=== PATIENT | male | born 1955 | race African-American/Black ===

== ENCOUNTER 2019-09-09 12:40 | Inpatient (IN) | payer OTHER ==
--- NOTE | 2019-09-09 12:54 | PDOC ---
History of Present Illness - General Chief Complaint: Irregular Heart Beat Stated Complaint: Irregular Heart Beat Time Seen by Provider: 09/09/19 12:53 - History of Present Illness Initial Comments: 09/09/19 13:26 63 y/o M hx of polysubstance abuse, presenting from [facility] with bradycardia. Pt from [facility] for detox for xanax use equally uses cocaine and alcohol Last xanax use was 3 days ago last cocaine use -yesterday alcohol use daily 1.5 pints. no seizures or withdrawals from alcohol use reported He denies any chest pain,lightheadedness, headache, syncope, nausea, vomiting, abdominal pain, fever or chills. Past History - Past Medical History Allergies/Adverse Reactions: Allergies Allergy/AdvReac Type Severity Reaction Status Date / Time Penicillins Allergy Severe Swelling Verified 09/09/19 10:56 Home Medications: Ambulatory Orders NK [No Known Home Medication] 09/09/19 *Physical Exam - Physical Exam 09/09/19 13:30 PE: GENERAL: Awake, alert, and fully oriented, in no acute distress HEAD: No signs of trauma, normocephalic, atraumatic EYES: PERRLA, EOMI, sclera anicteric, conjunctiva clear ENT: Auricles normal inspection, hearing grossly normal, nares patent, oropharynx clear without exudates. Moist mucosa NECK: Normal ROM, supple, no lymphadenopathy, JVD, or masses LUNGS: No distress, speaks full sentences, clear to auscultation bilaterally HEART: Regular rate and rhythm, normal S1 and S2, no murmurs, rubs or gallops, peripheral pulses normal and equal bilaterally. ABDOMEN: Soft, nontender, normoactive bowel sounds. No guarding, no rebound. No masses EXTREMITIES : Normal inspection, Normal range of motion, no edema. No clubbing or cyanosis NEUROLOGICAL: Cranial nerves II through XII grossly intact. Normal speech, normal gait, no focal sensorimotor deficits SKIN: Warm, Dry, normal turgor, no rashes or lesions noted ED Treatment Course - LABORATORY CBC & Chemistry Diagram: 09/13/19 06:55 09/13/19 06:55 Medical Decision Making - Medical Decision Making 09/09/19 13:29 ekg, cbc, cmp, troponin ekg: qt prolongation QT/QTc 678/532 bradycardia 37bpm pt stable, asymptomatic Labs generally unremarkable. Pt asymptomatic (no hypotension, altered mental status) QT prolongation possibly due to methadone use. Pt admitted to hospital for observation and monitoring. 09/09/19 18:57 Discharge - Discharge Information Problems reviewed: Yes Clinical Impression/Diagnosis: Bradycardia, QT prolongation - Follow up/Referral - Patient Discharge Instructions - Post Discharge Activity
[2019-09-09 12:56] VITALS: BMI 35.5
[2019-09-09 13:42] LABS: BASO % 0.7 % (0-2.0); EOS % 1.4 % (0-4.5); HEMATOCRIT 35.5 % (35.4-49); HEMOGLOBIN 11.8 GM/dL (11.7-16.9); LYMPH % 32.8 % (8-40); MCHC 33.3 g/dl (32.0-35.9); MEAN CELL VOLUME 90.2 fl (80-96); MEAN PLT VOLUME 8.7 fl (7.5-11.1); MONO % 5.2 % (3.8-10.2); NEUT % 59.9 % (42.8-82.8); PLATELET COUNT 162 K/MM3 (134-434); RBC 3.94 M/mm3 (4.00-5.60); RDW 14.1 % (11.9-15.9); WHITE BLOOD COUNT 4.7 K/mm3 (4.0-10.0)
[2019-09-09 14:10] LABS: ALBUMIN 3.2 g/dl (3.4-5.0); ALK PHOS 105 U/L (45-117); ANION GAP 2 MMOL/L (8-16); BILIRUBIN,TOTAL 0.5 mg/dL (0.2-1); BLOOD UREA NITROGEN 15.6 mg/dL (7-18); CALCIUM 8.3 mg/dL (8.5-10.1); CHLORIDE 111 mmol/L (98-107); CO2 30 mmol/L (21-32); CREATININE 1.1 mg/dL (0.55-1.3); GLUCOSE,RANDOM 68 mg/dL (74-106); POTASSIUM 4.2 mmol/L (3.5-5.1); SGOT/AST 11 U/L (15-37); SGPT/ALT 12 U/L (13-61); SODIUM 143 mmol/L (136-145); TOT PROT 6.2 g/dl (6.4-8.2)
--- NOTE | 2019-09-09 14:36 | PDOC ---
Documentation entered by James Sanford SCRIBE, acting as scribe for Wilner Crowley MD. Wilner Crowley MD: This documentation has been prepared by the Juvenal javier Nirvannie, SCRIBE, under my direction and personally reviewed by me in its entirety. I confirm that the documentation accurately reflects all work, treatment, procedures, and medical decision making performed by me. Attending Attestation - Resident Resident Name: Yuni Simpson - ED Attending Attestation I have performed the following: I have examined & evaluated the patient, The case was reviewed & discussed with the resident, I agree w/resident's findings & plan, Exceptions are as noted - HPI HPI: 09/09/19 13:25 CC: Bradycardia. HPI: The patient is a 63 year old male, with a significant past medical history of polysubstance abuse (alcohol, crack cocaine, and Xanax), who presents to the emergency department with, bradycardia. As per [facility], patient was at their [facility] at which time he was found to be bradycardic to 49 bpm. Patient notes to be asymptomatic. He denies any recent chest pain or shortness of breath. Allergies: Penicillins. Social History: Alcohol abuse (1.5 pts vodka, 3-4 6pks of beer/day approximately 47 years), Crack cocaine (smoking approximately 20 years, Xanax ( 3-6x week, approximately 4-5 months) - Physicial Exam PE: 09/09/19 14:41 Vitals: Triage Vital signs reviewed General Appearance: No acute distress, well nourished well developed, Head: Atraumatic, Cardiac: Bradycardic Lungs: Clear to auscultation bilateral, good air movement bilaterally, Abdomen: Soft, non distended, large abdomen mild ascites Extremities: Full range of motion to all extremities, no cyanosis, clubbing, or edema Skin: Warm and dry, no rashes or lesions, no rash, no petechiae Psych: Normal mood, normal affect - Medical Decision Making 09/09/19 14:42 EKG performed at 1312 demonstrates marketed sinus bradycardia with very significantly prolonged QT corrected QT 532 Patient is on methadone at [facility] patient will require observation for telemetry monitoring and discussion regarding the continuation of methadone given its effect on QT
--- NOTE | 2019-09-09 16:29 | CON.CARD ---
Consult Consult Specialty:: Cardiology Reason for Consultation:: Bradycardia - History of Present Illness History of Present Illness: The patient is a 63 year old male, with a significant past medical history of polysubstance abuse (alcohol, crack cocaine, and Xanax), who presents to the emergency department with, bradycardia. As per [facility], patient was at their [facility], [place] at which time he was found to be bradycardic to 49 bpm. Patient notes to be asymptomatic. He denies any recent chest pain or shortness of breath. Allergies: Penicillins. Social History: Alcohol abuse (1.5 pts vodka, 3-4 6pks of beer/day approximately 47 years), Crack cocaine (smoking approximately 20 years, Xanax ( 3-6x week, approximately 4-5 months) - Alcohol/Substance Use Hx Alcohol Use: Yes (a lot of vodka) - Smoking History Smoking history: Current every day smoker Home Medications - Allergies Allergies/Adverse Reactions: Allergies Allergy/AdvReac Type Severity Reaction Status Date / Time Penicillins Allergy Severe Swelling Verified 09/09/19 10:56 - Home Medications Home Medications: Ambulatory Orders NK [No Known Home Medication] 09/09/19 Review of Systems - Review of Systems Constitutional: reports: No Symptoms Eyes: reports: No Symptoms HENT: reports: No Symptoms Neck: reports: No Symptoms Cardiovascular: reports: No Symptoms Respiratory: reports: No Symptoms Gastrointestinal: reports: No Symptoms Genitourinary: reports: No Symptoms Breasts: reports: No Symptoms Reported Musculoskeletal: reports: No Symptoms Integumentary: reports: No Symptoms Neurological: reports: No Symptoms Endocrine: reports: No Symptoms Hematology/Lymphatic: reports: No Symptoms Psychiatric: reports: No Symptoms Vital Signs: Vital Signs Temperature 97.8 F 09/09/19 12:49 Pulse Rate 38 L 09/09/19 12:49 Respiratory Rate 16 09/09/19 12:49 Blood Pressure 168/79 09/09/19 12:49 O2 Sat by Pulse Oximetry (%) 94 L 09/09/19 12:49 Constitutional: Yes: Well Nourished, No Distress, Calm Eyes: Yes: WNL, Conjunctiva Clear, EOM Intact HENT: Yes: WNL, Atraumatic, Normocephalic Neck: Yes: WNL, Supple, Trachea Midline Respiratory: Yes: WNL, Regular, CTA Bilaterally Gastrointestinal: Yes: WNL, Normal Bowel Sounds Renal/: Yes: WNL Cardiovascular: Yes: WNL, Regular Rate and Rhythm Heart Sounds: Yes: S1, S2 Musculoskeletal: Yes: WNL Extremities: Yes: WNL Integumentary: Yes: WNL Neurological: Yes: WNL, Alert, Oriented ...Motor Strength: WNL Psychiatric: Yes: WNL, Alert, Oriented - Other Data Labs, Other Data: CBC, BMP 09/09/19 13:15 09/09/19 13:15 Troponin, BNP 09/09/19 13:15 Troponin I < 0.02 Troponin, BNP 09/09/19 13:15 Troponin I < 0.02 Imaging - Results Chest X-ray: Image Reviewed (no i/e) EKG: Image Reviewed (s sharon at 37 prolonged QTC) Assessment/Plan Polysubstance abuse asymptomatic bradycardia prolonged QT interval CE negative Plan serial ekgs to monitor QTC telemetry echo holter detox
--- NOTE | 2019-09-09 16:54 | HP ---
CHIEF COMPLAINT: sent by [facility] for bradycardia PCP: HISTORY OF PRESENT ILLNESS: Patient is a 63 year old male with a significant past medical history of polysubstance abuse, alcohol abuse who presented to [facility] for detox from Xanax use (uses 3 xanax per day x 4-5 months, last used on Sunday), cocaine use (used yesterday-smokes), etoh use (beer 6 packs per day, last used today). He denies any seizures or tremors or any signs/symptoms of withdrawal. Patient has been on methadone 100mg for approximately one month and was on a lower dose of methadone a few months prior. Patient brought in for asymptomatic bradycardia and prolonged QTC of 532 on EKG. In the ED patient is awake alert and denies any dizziness, shortness of breath or any other malaise with ambulation. Denies chest pain. ER course was notable for: (1) ekg marked sinus bradycardia 38, qtc 532 (2) (3) Recent Travel: none recent PAST MEDICAL HISTORY: polysubstance abuse, alcohol abuse PAST SURGICAL HISTORY: Social History: Smoking: smokes cocaine Alcohol: beer, 6 pack per day Drugs: cocaine Allergies Penicillins Allergy (Severe, Verified 09/09/19 10:56) Swelling HOME MEDICATIONS: Home Medications Medication Instructions Recorded NK [No Known Home Medication] 09/09/19 PHYSICAL EXAMINATION Vital Signs - 24 hr 09/09/19 12:49 Temperature 97.8 F Pulse Rate 38 L Respiratory 16 Rate Blood Pressure 168/79 O2 Sat by Pulse 94 L Oximetry (%) GENERAL: Awake, alert, and fully oriented, in no acute distress. HEAD: Normal with no signs of trauma. EYES: Pupils equal, round and reactive to light, extraocular movements intact, sclera anicteric, conjunctiva clear. No lid lag. EARS, NOSE, THROAT: Ears normal, nares patent, oropharynx clear without exudates. Moist mucous membranes. NECK: Normal range of motion, supple without lymphadenopathy, JVD, or masses. LUNGS: Breath sounds equal, clear to auscultation bilaterally. No wheezes, and no crackles. No accessory muscle use. HEART: marked sinus bradycardia 38-41 ABDOMEN: Soft, nontender, not distended, normoactive bowel sounds, no guarding, no rebound, no masses. No hepatomegaly or splenomegaly. MUSCULOSKELETAL: Normal range of motion at all joints. No bony deformities or tenderness. No CVA tenderness. UPPER EXTREMITIES: No peripheral edema. LOWER EXTREMITIES: No peripheral edema. NEUROLOGICAL: Normal speech. Normal gait. PSYCHIATRIC: Cooperative. Good eye contact. Appropriate mood and affect. SKIN: Warm, dry, normal turgor, no rashes or lesions noted, normal capillary refill. Laboratory Results - last 24 hr 09/09/19 09/09/19 13:15 13:15 WBC 4.7 RBC 3.94 L Hgb 11.8 Hct 35.5 MCV 90.2 MCH 30.0 MCHC 33.3 RDW 14.1 Plt Count 162 MPV 8.7 Absolute Neuts (auto) 2.8 Neutrophils % 59.9 Lymphocytes % 32.8 Monocytes % 5.2 Eosinophils % 1.4 Basophils % 0.7 Nucleated RBC % 0 Sodium 143 Potassium 4.2 Chloride 111 H Carbon Dioxide 30 Anion Gap 2 L BUN 15.6 Creatinine 1.1 Est GFR (CKD-EPI)AfAm 83.53 Est GFR (CKD-EPI)NonAf 72.07 Random Glucose 68 L Calcium 8.3 L Total Bilirubin 0.5 AST 11 L ALT 12 L Alkaline Phosphatase 105 Troponin I < 0.02 Total Protein 6.2 L Albumin 3.2 L ASSESSMENT/PLAN: Problem List - Problem (1) Bradycardia Assessment/Plan: presents with marked sinus bradycardia with prolonged qtc monitor on tele no signs of infection or hypothermia pacer pads ordered start IVF hydration monitor on tele and trend troponins will order echo and check tsh Code(s): R00.1 - BRADYCARDIA, UNSPECIFIED (2) ETOH abuse Assessment/Plan: avoid any benzos secondary to marked sinus bradycardia, start banana bag, folate thiamine no acute signs of withdrawal on exam Code(s): F10.10 - ALCOHOL ABUSE, UNCOMPLICATED (3) Drug use Assessment/Plan: hx of xanax abuse, monitor for any seizures hold all benzos secondary to sinus bradycardia hold methadone await addition medicine recommendations Code(s): F19.90 - OTHER PSYCHOACTIVE SUBSTANCE USE, UNSPECIFIED, UNCOMPLICATED Visit type - Emergency Visit Emergency Visit: Yes ED Registration Date: 09/09/19 Care time: The patient presented to the Emergency Department on the above date and was hospitalized for further evaluation of their emergent condition. - New Patient This patient is new to me today: Yes Date on this admission: 09/09/19 - Critical Care Critical Care patient: No
[2019-09-09] MEDS ORDERED: FOLIC ACID INJECTION - 1 MG, THIAMINE HCL 100 MG, MULTIVIT INJECTION ADULT 10 ML in SOD... IVPB ONE (18:52)
[2019-09-09] MEDS ORDERED: ACETAMINOPHEN 325 MG TABLET (FP) PO PRN (18:53)
[2019-09-09] MEDS ORDERED: SODIUM CHLORIDE 1,000 ML IV SCH (19:00)
[2019-09-10] MEDS ORDERED: ACETAMINOPHEN 325 MG TABLET (FP) ONE (02:12)
[2019-09-10 07:22] LABS: BASO % 0.6 % (0-2.0); EOS % 2.1 % (0-4.5); HEMATOCRIT 37.6 % (35.4-49); HEMOGLOBIN 12.6 GM/dL (11.7-16.9); LYMPH % 42.9 % (8-40); MCH 30.3 pg (25.7-33.7); MCHC 33.6 g/dl (32.0-35.9); MEAN CELL VOLUME 90.1 fl (80-96); MEAN PLT VOLUME 9.6 fl (7.5-11.1); MONO % 5.1 % (3.8-10.2); NEUT % 49.3 % (42.8-82.8); PLATELET COUNT 155 K/MM3 (134-434); RBC 4.17 M/mm3 (4.00-5.60); RDW 13.7 % (11.9-15.9); WHITE BLOOD COUNT 4.4 K/mm3 (4.0-10.0)
[2019-09-10 08:03] LABS: BLOOD UREA NITROGEN 14.3 mg/dL (7-18); CALCIUM 8.6 mg/dL (8.5-10.1); CREATININE 0.9 mg/dL (0.55-1.3); MAGNESIUM 2.1 mg/dL (1.8-2.4); POTASSIUM 3.6 mmol/L (3.5-5.1)
--- NOTE | 2019-09-10 10:48 | EKG ---
Test Reason : Blood Pressure : / mmHG Vent. Rate : 037 BPM Atrial Rate : 037 BPM P-R Int : 148 ms QRS Dur : 096 ms QT Int : 678 ms P-R-T Axes : 050 -15 -03 degrees QTc Int : 532 ms MARKED SINUS BRADYCARDIA NONSPECIFIC T WAVE ABNORMALITY PROLONGED QT ABNORMAL ECG NO PREVIOUS ECGS AVAILABLE Confirmed by SARA DUMONT MD ([id number]) on 09/10/2019 10:47:48 AM Referred By: Confirmed By:SARA DUMONT MD
[2019-09-10] MEDS: FOLIC ACID 1 MG TABLET (FP) PO SCH (11:00)
[2019-09-10] MEDS: THIAMINE HCL 100 MG TABLET (FP) PO SCH (11:00)
[2019-09-10] MEDS: PANTOPRAZOLE 40 MG TABLET (FP) PO SCH (11:00)
[2019-09-10] MEDS ORDERED: PANTOPRAZOLE 40 MG TABLET (FP) ONE (11:11)
[2019-09-10] MEDS ORDERED: THIAMINE HCL 100 MG TABLET (FP) ONE (11:11)
[2019-09-10] MEDS ORDERED: FOLIC ACID 1 MG TABLET (FP) ONE (11:12)
--- NOTE | 2019-09-10 12:57 | PN ---
Physical Exam: SUBJECTIVE: Patient seen and examined at the bedside. feels like he is having some withdrawal, having nausea and upper body tremors. see ciwa score. OBJECTIVE: Patient is a 63 year old male with a significant past medical history of polysubstance abuse, alcohol abuse who presented to [facility] for detox from Xanax use (uses 3 xanax per day x 4-5 months, last used on Sunday), cocaine use (used yesterday-smokes), etoh use (beer 6 packs per day, last used today). He denies any seizures or tremors or any signs/symptoms of withdrawal. Patient has been on methadone 100mg for approximately one month and was on a lower dose of methadone a few months prior. Patient brought in for asymptomatic bradycardia and prolonged QTC of 532 on EKG. In the ED patient is awake alert and denies any dizziness, shortness of breath or any other malaise with ambulation. Denies chest pain. On admission his Methadone 100mg was held secondary to marked bradycardia. Patient now with withdrawal symptoms. I spoke to Dr. Aburto who recommended a valium taper for detox of xanax. Further Dr Aburto recommended that I call [facility] methadone clinic and discuss case with physician. Called Dr. Granados at [facility] methadone clinic [phone]. advised that methadone should not be completed discontinued and instead can be reduced, recommended methadone 70mg daily and monitor of qtc. will order daily ekgs. Vital Signs Period Temp Pulse Resp BP Sys/Roberson Pulse Ox Last 24 Hr 98.1 F 37-83 18-18 134-180/70-94 96-100 GENERAL: Awake, alert, and fully oriented, in no acute distress. HEAD: Normal with no signs of trauma. EYES: Pupils equal, round and reactive to light, extraocular movements intact, sclera anicteric, conjunctiva clear. No lid lag. EARS, NOSE, THROAT: Ears normal, nares patent, oropharynx clear without exudates. Moist mucous membranes. NECK: Normal range of motion, supple without lymphadenopathy, JVD, or masses. LUNGS: Breath sounds equal, clear to auscultation bilaterally. No wheezes, and no crackles. No accessory muscle use. HEART: marked sinus bradycardia 38-41 ABDOMEN: Soft, nontender, not distended, normoactive bowel sounds, no guarding, no rebound, no masses. No hepatomegaly or splenomegaly. MUSCULOSKELETAL: Normal range of motion at all joints. No bony deformities or tenderness. No CVA tenderness. UPPER EXTREMITIES: No peripheral edema. LOWER EXTREMITIES: No peripheral edema. NEUROLOGICAL: Normal speech. Normal gait. PSYCHIATRIC: Cooperative. Good eye contact. Appropriate mood and affect. SKIN: Warm, dry, normal turgor, no rashes or lesions noted, normal capillary refill. Laboratory Results - last 24 hr 09/09/19 09/09/19 09/09/19 13:15 13:15 18:30 WBC 4.7 RBC 3.94 L Hgb 11.8 Hct 35.5 MCV 90.2 MCH 30.0 MCHC 33.3 RDW 14.1 Plt Count 162 MPV 8.7 Absolute Neuts (auto) 2.8 Neutrophils % 59.9 Lymphocytes % 32.8 Monocytes % 5.2 Eosinophils % 1.4 Basophils % 0.7 Nucleated RBC % 0 Sodium 143 Potassium 4.2 Chloride 111 H Carbon Dioxide 30 Anion Gap 2 L BUN 15.6 Creatinine 1.1 Est GFR (CKD-EPI)AfAm 83.53 Est GFR (CKD-EPI)NonAf 72.07 Random Glucose 68 L Calcium 8.3 L Magnesium Total Bilirubin 0.5 AST 11 L ALT 12 L Alkaline Phosphatase 105 Troponin I < 0.02 < 0.02 Total Protein 6.2 L Albumin 3.2 L Triglycerides Cholesterol Total LDL Cholesterol HDL Cholesterol TSH Thyroxine (T4) 09/10/19 09/10/19 09/10/19 04:06 06:30 06:30 WBC 4.4 RBC 4.17 Hgb 12.6 Hct 37.6 MCV 90.1 MCH 30.3 MCHC 33.6 RDW 13.7 Plt Count 155 MPV 9.6 D Absolute Neuts (auto) 2.2 Neutrophils % 49.3 Lymphocytes % 42.9 H D Monocytes % 5.1 Eosinophils % 2.1 Basophils % 0.6 Nucleated RBC % 0 Sodium 145 Potassium 3.6 Chloride 114 H Carbon Dioxide 27 Anion Gap 4 L BUN 14.3 Creatinine 0.9 Est GFR (CKD-EPI)AfAm 106.46 Est GFR (CKD-EPI)NonAf 91.86 Random Glucose 64 L Calcium 8.6 Magnesium 2.1 Total Bilirubin AST ALT Alkaline Phosphatase Troponin I < 0.02 Total Protein Albumin Triglycerides 59 Cholesterol 142 Total LDL Cholesterol 75 HDL Cholesterol 59 TSH 1.01 Thyroxine (T4) 9.3 Active Medications Generic Name Dose Route Start Last Admin Trade Name Umer PRN Reason Stop Dose Admin Acetaminophen 650 mg 09/09/19 18:53 09/10/19 02:14 Tylenol - PO 650 mg Q6H PRN Administration PAIN LEVEL 7 - 10 Folic Acid 1 mg 09/10/19 10:00 09/10/19 11:00 Folic Acid - PO 1 mg DAILY GELY Administration Sodium Chloride 1,000 mls @ 125 mls/hr 09/09/19 19:00 09/09/19 23:25 Normal Saline - IV Not Given ASDIR GELY Pantoprazole Sodium 40 mg 09/10/19 10:00 09/10/19 11:00 Protonix - PO 40 mg DAILY GELY Administration Thiamine HCl 100 mg 09/10/19 10:00 09/10/19 11:00 Vitamin B1 - PO 100 mg DAILY GELY Administration ASSESSMENT/PLAN: Problem List - Problems (1) Bradycardia Assessment/Plan: presents with marked sinus bradycardia with prolonged qtc. will order daily ekgs. echo ordered and pending. monitor on tele no signs of infection or hypothermia pacer pads ordered start IVF hydration will order echo and check tsh Code(s): R00.1 - BRADYCARDIA, UNSPECIFIED (2) ETOH abuse Assessment/Plan: patient with xanax abuse, unable to discontinue abruptly and a valium taper recommended by Dr. Aburto. given banana bag, folate thiamine for etoh abuse. mild tremors. monitor low ciwa score Code(s): F10.10 - ALCOHOL ABUSE, UNCOMPLICATED (3) Drug use Assessment/Plan: hx of xanax abuse, monitor for any seizures hold all benzos secondary to sinus bradycardia hold methadone await addition medicine recommendations Code(s): F19.90 - OTHER PSYCHOACTIVE SUBSTANCE USE, UNSPECIFIED, UNCOMPLICATED (4) Prophylactic measure Assessment/Plan: fen tolerating po monitor electrolytes low salt diet full code dc to [facility] once cleared by cardiology Code(s): Z29.9 - ENCOUNTER FOR PROPHYLACTIC MEASURES, UNSPECIFIED Visit type - Emergency Visit Emergency Visit: Yes ED Registration Date: 09/09/19 Care time: The patient presented to the Emergency Department on the above date and was hospitalized for further evaluation of their emergent condition. - New Patient This patient is new to me today: No - Critical Care Critical Care patient: No - Discharge Referral Referred to [facility] No CIWA Score Nausea/Vomitin-No Nausea/No Vomiting Muscle Tremors: 4-Moderate,w/Arms Extend Anxiety: 1-Mildly Anxious Agitation: 0-Normal Activity Paroxysmal Sweats: 1-Minimal Palms Moist Orientation: 1-Uncertain about Date Tacttile Disturbances: 0-None Auditory Disturbances: 0-None Visual Disturbances: 0-None Headache: 0-None Present CIWA-Ar Total Score: 7 - Admission Criteria OASAS Guidelines: Admission for Medically Managed Detox: Requires at least one of the followin. CIWA greater than 12 2. Seizures within the past 24 hours 3. Delirium tremens within the past 24 hours 4. Hallucinations within the past 24 hours 5. Acute intervention needed for co occurring medical disorder 6. Acute intervention needed for co occurring psychiatric disorder 7. Severe withdrawal that cannot be handled at a lower level of care (continued vomiting, continued diarrhea, abnormal vital signs) requiring intravenous medication and/or fluids 8.
[2019-09-10] MEDS ORDERED: METHADONE HCL 10 MG TABLET PO ONE (13:16)
[2019-09-10] MEDS ORDERED: METHADONE 40 MG, METHADONE 30 MG PO ONE (13:30)
[2019-09-10] MEDS ORDERED: diazePAM 2 MG TABLET PO PRN (13:40)
--- NOTE | 2019-09-10 14:45 | PN ---
Progress Note, Physician History of Present Illness: The patient is a 63 year old male, with a significant past medical history of polysubstance abuse (alcohol, crack cocaine, and Xanax), who presents to the emergency department with, bradycardia. As per [facility], patient was at their [facility], [place] at which time he was found to be bradycardic to 49 bpm. Patient notes to be asymptomatic. He denies any recent chest pain or shortness of breath. Allergies: Penicillins. Social History: Alcohol abuse (1.5 pts vodka, 3-4 6pks of beer/day approximately 47 years), Crack cocaine (smoking approximately 20 years, Xanax ( 3-6x week, approximately 4-5 months) - Current Medication List Current Medications: Active Medications Acetaminophen (Tylenol -) 650 mg PO Q6H PRN PRN Reason: PAIN LEVEL 7 - 10 Last Admin: 09/10/19 02:14 Dose: 650 mg Diazepam (Valium -) 2 mg PO Q8H PRN PRN Reason: WITHDRAWAL(CONT SUBST) Folic Acid (Folic Acid -) 1 mg PO DAILY [facility] Last Admin: 09/10/19 11:00 Dose: 1 mg Sodium Chloride (Normal Saline -) 1,000 mls @ 125 mls/hr IV ASDIR [facility] Last Admin: 09/09/19 23:25 Dose: Not Given Pantoprazole Sodium (Protonix -) 40 mg PO DAILY [facility] Last Admin: 09/10/19 11:00 Dose: 40 mg Thiamine HCl (Vitamin B1 -) 100 mg PO DAILY [facility] Last Admin: 09/10/19 11:00 Dose: 100 mg - Objective Vital Signs: Vital Signs Temperature 98.1 F 09/10/19 13:56 Pulse Rate 38 L 09/10/19 13:56 Respiratory Rate 18 09/10/19 13:56 Blood Pressure 115/74 09/10/19 13:56 O2 Sat by Pulse Oximetry (%) 96 09/10/19 09:41 Eyes: Yes: WNL, Conjunctiva Clear, EOM Intact HENT: Yes: WNL, Atraumatic, Normocephalic Neck: Yes: WNL, Supple, Trachea Midline Cardiovascular: Yes: WNL, Regular Rate and Rhythm Respiratory: Yes: WNL, Regular, CTA Bilaterally Gastrointestinal: Yes: WNL, Normal Bowel Sounds Genitourinary: Yes: WNL Musculoskeletal: Yes: WNL Extremities: Yes: WNL Edema: No Integumentary: Yes: WNL Neurological: Yes: WNL, Alert, Oriented ...Motor Strength: WNL Psychiatric: Yes: WNL Labs: CBC, BMP 09/10/19 06:30 09/10/19 06:30 Assessment/Plan Polysubstance abuse asymptomatic bradycardia prolonged QT interval CE negative Plan serial ekgs to monitor QTC telemetry echo holter detox
[2019-09-10] MEDS ORDERED: diazePAM 5 MG TABLET PO PRN (14:46)
--- NOTE | 2019-09-10 14:56 | EKG ---
Test Reason : Blood Pressure : / mmHG Vent. Rate : 037 BPM Atrial Rate : 037 BPM P-R Int : 152 ms QRS Dur : 084 ms QT Int : 586 ms P-R-T Axes : 059 -25 002 degrees QTc Int : 460 ms MARKED SINUS BRADYCARDIA ABNORMAL ECG WHEN COMPARED WITH ECG OF 09-SEP-2019 13:12, QT HAS SHORTENED Confirmed by SARA DUMONT MD ([id number]) on 09/10/2019 2:55:33 PM Referred By: Confirmed By:SARA DUMONT MD
--- NOTE | 2019-09-10 16:44 | ECHO ---
Name: VALERIE CONN Exam:Adult Echocardiogram Study Date: 09/10/2019 03:30 PM Age: 63 yrs Reason For Study: ef Height: 67 in Weight: 220 lb BSA: 2.1 m2 MMode/2D Measurements & Calculations IVSd: 1.2 cm Ao root diam: 3.8 cm LVIDd: 5.5 cm LA dimension: 4.2 cm LVIDs: 2.6 cm LVPWd: 1.1 cm IVSs: 1.4 cm LVPWs: 1.3 cm EDV(Teich): 146.5 ml ESV(Teich): 25.1 ml Doppler Measurements & Calculations MV E max pito: 69.6 cm/sec Ao V2 max: 122.7 cm/sec MV A max pito: 47.4 cm/sec Ao max P.0 mmHg MV E/A: 1.5 Ao V2 mean: 94.5 cm/sec Ao mean P.8 mmHg Ao V2 VTI: 33.6 cm MR max pito: 614.3 cm/sec TR max pito: 283.0 cm/sec MR max P.8 mmHg TR max P.6 mmHg PI end-d pito: 108.6 cm/sec Med Peak E' Pito: 9.4 cm/sec Med E/e': 7.4 Lat Peak E' Pito: 10.1 cm/sec Lat E/e': 6.9 Procedure A two-dimensional transthoracic echocardiogram with color flow and Doppler was performed. Left Ventricle The left ventricular size, thickness and function are normal. The left ventricular ejection fraction is normal. The left ventricular wall motion is normal. Right Ventricle A moderator band is seen in the right ventricle. The right ventricle is mildly dilated. The right debora tricular systolic function is mildly reduced. Atria The left atrium is mildly dilated. The right atrium is mildly dilated. Mitral Valve There is mild mitral valve thickening. There is no mitral valve stenosis. There is mild to moderate m itral regurgitation. Tricuspid Valve There is mild tricuspid valve thickening. There is no tricuspid stenosis. There is moderate tricuspid regurgitation. Right ventricular systolic pressure is elevated at 40-50mmHg. Aortic Valve The aortic valve is normal in structure and function. No hemodynamically significant valvular aortic stenosis. No aortic regurgitation is present. Pulmonic Valve The pulmonic valve is not well visualized. There is no pulmonic valvular stenosis. Mild pulmonic valv ular regurgitation. Great Vessels The aortic root is normal size. Pericardium/Pleura There is no pericardial effusion. Interpretation Summary The left ventricular size, thickness and function are normal The left ventricular ejection fraction is normal. The left ventricular wall motion is normal. The left atrium is mildly dilated. The right atrium is mildly dilated. There is moderate tricuspid regurgitation. Right ventricular systolic pressure is elevated at 40-50mmHg. The right ventricle is mildly dilated. The right ventricular systolic function is mildly reduced. There is mild to moderate mitral regurgitation. MD Wali Hampton 09/10/2019 04:44 PM
[2019-09-10] MEDS: diazePAM 5 MG TABLET PO SCH ×2 (17:04→21:27)
[2019-09-10] MEDS ORDERED: METHADONE HCL 10 MG TABLET ONE (17:30)
[2019-09-10] MEDS ORDERED: METHADONE HCL 40 MG DISPERSABLE TABLET ONE (17:30)
[2019-09-11] MEDS ORDERED: METHADONE HCL 10 MG TABLET ONE (05:37)
[2019-09-11] MEDS ORDERED: METHADONE HCL 40 MG DISPERSABLE TABLET ONE (05:37)
[2019-09-11] MEDS: METHADONE 40 MG, METHADONE 30 MG PO SCH (05:46)
[2019-09-11] MEDS: diazePAM 5 MG TABLET PO SCH ×3 (05:47→21:18)
[2019-09-11] MEDS ORDERED: METHADONE HCL 10 MG TABLET PO SCH (06:00)
[2019-09-11 07:47] LABS: BASO % 0.6 % (0-2.0); EOS % 1.3 % (0-4.5); HEMATOCRIT 39.6 % (35.4-49); HEMOGLOBIN 13.4 GM/dL (11.7-16.9); LYMPH % 37.6 % (8-40); MCH 30.3 pg (25.7-33.7); MCHC 33.8 g/dl (32.0-35.9); MEAN CELL VOLUME 89.8 fl (80-96); MEAN PLT VOLUME 9.8 fl (7.5-11.1); MONO % 4.7 % (3.8-10.2); NEUT % 55.8 % (42.8-82.8); PLATELET COUNT 181 K/MM3 (134-434); RBC 4.41 M/mm3 (4.00-5.60); RDW 13.5 % (11.9-15.9); WHITE BLOOD COUNT 5.2 K/mm3 (4.0-10.0)
[2019-09-11 07:50] LABS: ALBUMIN 3.1 g/dl (3.4-5.0); BLOOD UREA NITROGEN 14.8 mg/dL (7-18); CALCIUM 8.9 mg/dL (8.5-10.1); CREATININE 1.2 mg/dL (0.55-1.3); MAGNESIUM 2.1 mg/dL (1.8-2.4); POTASSIUM 3.8 mmol/L (3.5-5.1); TOT PROT 6.4 g/dl (6.4-8.2)
--- NOTE | 2019-09-11 09:49 | PN ---
Physical Exam: SUBJECTIVE: Patient seen and examined. He reports feeling SOB with activity. He denies chest pain, palpitations. OBJECTIVE: Vital Signs Period Temp Pulse Resp BP Sys/Roberson Pulse Ox Last 24 Hr 97.6 F-98.7 F 38-48 18-18 115-145/40-78 98-99 GENERAL: The patient is awake, alert, and fully oriented, in no acute distress. LUNGS: Breath sounds equal, clear to auscultation bilaterally, no wheezes, no crackles, no accessory muscle use. HEART: Regular rhythm, bradycardic, S1, S2 without murmur, rub or gallop. ABDOMEN: Obese, soft, nontender, nondistended, normoactive bowel sounds, no guarding, no rebound, no hepatosplenomegaly, no masses. EXTREMITIES: 2+ pulses, warm, well-perfused, no edema. Laboratory Results - last 24 hr 09/11/19 09/11/19 06:46 06:46 WBC 5.2 RBC 4.41 Hgb 13.4 Hct 39.6 MCV 89.8 MCH 30.3 MCHC 33.8 RDW 13.5 Plt Count 181 MPV 9.8 Absolute Neuts (auto) 2.9 Neutrophils % 55.8 Lymphocytes % 37.6 Monocytes % 4.7 Eosinophils % 1.3 Basophils % 0.6 Nucleated RBC % 0 Sodium 142 Potassium 3.8 Chloride 107 Carbon Dioxide 29 Anion Gap 6 L BUN 14.8 Creatinine 1.2 Est GFR (CKD-EPI)AfAm 75.19 Est GFR (CKD-EPI)NonAf 64.87 Random Glucose 75 Calcium 8.9 Magnesium 2.1 Total Bilirubin 1.0 AST 15 ALT 17 Alkaline Phosphatase 114 Total Protein 6.4 Albumin 3.1 L Active Medications Generic Name Dose Route Start Last Admin Trade Name Freq PRN Reason Stop Dose Admin Acetaminophen 650 mg 09/09/19 18:53 09/10/19 02:14 Tylenol - PO 650 mg Q6H PRN Administration PAIN LEVEL 7 - 10 Diazepam 5 mg 09/10/19 14:00 09/11/19 05:47 Valium - PO 09/11/19 22:01 5 mg TID GELY Administration Diazepam 5 mg 09/12/19 06:00 Valium - PO 09/12/19 18:01 Q12H GELY Diazepam 5 mg 09/13/19 06:00 Valium - PO 09/13/19 06:01 ONCE ONE Diazepam 10 mg 09/10/19 14:46 Valium - PO 09/13/19 14:45 Q4H PRN WITHDRAWAL(CONT SUBST) Folic Acid 1 mg 09/10/19 10:00 09/10/19 11:00 Folic Acid - PO 1 mg DAILY GELY Administration Sodium Chloride 1,000 mls @ 125 mls/hr 09/09/19 19:00 09/09/19 23:25 Normal Saline - IV Not Given ASDIR GELY Methadone HCl 40 mg/ Methadone 70 mg 09/11/19 06:00 09/11/19 05:46 HCl 30 mg PO 70 mg DAILY@0600 GELY Administration Pantoprazole Sodium 40 mg 09/10/19 10:00 09/10/19 11:00 Protonix - PO 40 mg DAILY GELY Administration Thiamine HCl 100 mg 09/10/19 10:00 09/10/19 11:00 Vitamin B1 - PO 100 mg DAILY GELY Administration ASSESSMENT/PLAN: This is a 63 year old man with a history of substance abuse who presented to [facility] for detox and was sent to the ED for bradycardia. 1. Sinus bradycardia - Asymptomatic - Echo shows normal LV, normal LVEF, mildly dilated LA, mildly dilated RA, moderate TR, elevated RVSP 40-50 mmHg, mildly dilated RV,, mildly reduced RV systolic function, mild to moderate MR - Holter ordered 2. Prolonged QTc - Resolved 3. Polysubstance abuse - Continue Valium detox for Xanax, alcohol - Continue thiamine, folic acid - Continue Methadone maintenance and monitor QTc Visit type - Emergency Visit Emergency Visit: Yes ED Registration Date: 09/09/19 Care time: The patient presented to the Emergency Department on the above date and was hospitalized for further evaluation of their emergent condition. - New Patient This patient is new to me today: Yes Date on this admission: 09/11/19 - Critical Care Critical Care patient: No - Discharge Referral Referred to [facility] Med P.C.: No
--- NOTE | 2019-09-11 10:43 | PN ---
Progress Note, Physician Chief Complaint: Cardiology for Dr. Arvizu History of Present Illness: Asymptomatic SB 40s, hemodynamics stable. - Current Medication List Current Medications: Active Medications Acetaminophen (Tylenol -) 650 mg PO Q6H PRN PRN Reason: PAIN LEVEL 7 - 10 Last Admin: 09/10/19 02:14 Dose: 650 mg Diazepam (Valium -) 5 mg PO TID [facility] Stop: 09/11/19 22:01 Last Admin: 09/11/19 05:47 Dose: 5 mg Diazepam (Valium -) 5 mg PO Q12H [facility] Stop: 09/12/19 18:01 Diazepam (Valium -) 5 mg PO ONCE ONE Stop: 09/13/19 06:01 Diazepam (Valium -) 10 mg PO Q4H PRN PRN Reason: WITHDRAWAL(CONT SUBST) Stop: 09/13/19 14:45 Folic Acid (Folic Acid -) 1 mg PO DAILY [facility] Last Admin: 09/10/19 11:00 Dose: 1 mg Sodium Chloride (Normal Saline -) 1,000 mls @ 125 mls/hr IV ASDIR [facility] Last Admin: 09/09/19 23:25 Dose: Not Given Methadone HCl 40 mg/ Methadone (HCl 30 mg) 70 mg PO DAILY@0600 [facility] Last Admin: 09/11/19 05:46 Dose: 70 mg Pantoprazole Sodium (Protonix -) 40 mg PO DAILY [facility] Last Admin: 09/10/19 11:00 Dose: 40 mg Thiamine HCl (Vitamin B1 -) 100 mg PO DAILY [facility] Last Admin: 09/10/19 11:00 Dose: 100 mg - Objective Vital Signs: Vital Signs Temperature 98.7 F 09/11/19 09:00 Pulse Rate 48 L 09/11/19 09:00 Respiratory Rate 18 09/11/19 09:00 Blood Pressure 139/66 09/11/19 09:00 O2 Sat by Pulse Oximetry (%) 99 09/11/19 09:00 Constitutional: Yes: No Distress, Calm Neck: Yes: Supple Cardiovascular: Yes: Bradycardia Respiratory: Yes: Regular, CTA Bilaterally Gastrointestinal: Yes: Soft, Hypoactive Bowel Sounds Edema: No Labs: CBC, BMP 09/11/19 06:46 09/11/19 06:46 - ....Imaging EKG: Report Reviewed (Tele: SB SB@40 QTc 461 msec) Problem List - Problems (1) Bradycardia Code(s): R00.1 - BRADYCARDIA, UNSPECIFIED (2) Drug use Code(s): F19.90 - OTHER PSYCHOACTIVE SUBSTANCE USE, UNSPECIFIED, UNCOMPLICATED (3) ETOH abuse Code(s): F10.10 - ALCOHOL ABUSE, UNCOMPLICATED Assessment/Plan 09/10/2019 Echo: Normal LV size and fxn, mildly dilated RV with mild decreased RV fxn, mod TR RVSP 40-50 mmHg, mild-mod MR Polysubstance abuse asymptomatic bradycardia-suspect high vagal tone prolonged QT interval since resolved Ruled out [place] Plan ETT to assess chronotropic competence F/u holter results detox
[2019-09-11] MEDS: PANTOPRAZOLE 40 MG TABLET (FP) PO SCH (10:47)
[2019-09-11] MEDS: FOLIC ACID 1 MG TABLET (FP) PO SCH (10:47)
[2019-09-11] MEDS: THIAMINE HCL 100 MG TABLET (FP) PO SCH (10:47)
--- NOTE | 2019-09-11 11:28 | EKG ---
Test Reason : Blood Pressure : / mmHG Vent. Rate : 040 BPM Atrial Rate : 040 BPM P-R Int : 144 ms QRS Dur : 088 ms QT Int : 566 ms P-R-T Axes : 059 -16 026 degrees QTc Int : 461 ms MARKED SINUS BRADYCARDIA T WAVE ABNORMALITY, CONSIDER ANTERIOR ISCHEMIA PROLONGED QT ABNORMAL ECG WHEN COMPARED WITH ECG OF 10-SEP-2019 10:49, NO SIGNIFICANT CHANGE WAS FOUND Confirmed by ARMEN CABELLO, KIRSTEN ([id number]) on 09/11/2019 11:27:57 AM Referred By: Sirena AZEVEDO Confirmed By:KIRSTEN AYERS MD
[2019-09-12] MEDS ORDERED: METHADONE HCL 10 MG TABLET ONE (04:38)
[2019-09-12] MEDS ORDERED: METHADONE HCL 40 MG DISPERSABLE TABLET ONE (04:38)
[2019-09-12] MEDS: diazePAM 5 MG TABLET PO SCH ×2 (06:20→17:41)
[2019-09-12] MEDS: METHADONE 40 MG, METHADONE 30 MG PO SCH (06:21)
[2019-09-12 07:39] LABS: BASO % 0.6 % (0-2.0); EOS % 1.7 % (0-4.5); HEMOGLOBIN 13.2 GM/dL (11.7-16.9); LYMPH % 38.2 % (8-40); MCH 30.4 pg (25.7-33.7); MCHC 33.9 g/dl (32.0-35.9); MEAN CELL VOLUME 89.8 fl (80-96); MEAN PLT VOLUME 9.4 fl (7.5-11.1); NEUT % 53.5 % (42.8-82.8); PLATELET COUNT 186 K/MM3 (134-434); RBC 4.34 M/mm3 (4.00-5.60); RDW 13.7 % (11.9-15.9); WHITE BLOOD COUNT 5.9 K/mm3 (4.0-10.0)
[2019-09-12 08:12] LABS: ALBUMIN 3.3 g/dl (3.4-5.0); BILIRUBIN,TOTAL 0.5 mg/dL (0.2-1); BLOOD UREA NITROGEN 21.4 mg/dL (7-18); CALCIUM 8.7 mg/dL (8.5-10.1); CREATININE 1.2 mg/dL (0.55-1.3); MAGNESIUM 2.1 mg/dL (1.8-2.4); POTASSIUM 3.9 mmol/L (3.5-5.1); TOT PROT 6.4 g/dl (6.4-8.2)
[2019-09-12 10:37] LABS: PLATELET ESTIMATE NORMAL
--- NOTE | 2019-09-12 11:20 | PN ---
Progress Note, Physician Chief Complaint: Cardiology for Dr. Arvizu History of Present Illness: Asymptomatic SB 40s, hemodynamics stable. - Current Medication List Current Medications: Active Medications Acetaminophen (Tylenol -) 650 mg PO Q6H PRN PRN Reason: PAIN LEVEL 7 - 10 Last Admin: 09/10/19 02:14 Dose: 650 mg Diazepam (Valium -) 5 mg PO Q12H GELY Stop: 09/12/19 18:01 Last Admin: 09/12/19 06:20 Dose: 5 mg Diazepam (Valium -) 5 mg PO ONCE ONE Stop: 09/13/19 06:01 Diazepam (Valium -) 10 mg PO Q4H PRN PRN Reason: WITHDRAWAL(CONT SUBST) Stop: 09/13/19 14:45 Folic Acid (Folic Acid -) 1 mg PO DAILY [facility] Last Admin: 09/11/19 10:47 Dose: 1 mg Sodium Chloride (Normal Saline -) 1,000 mls @ 125 mls/hr IV ASDIR [facility] Last Admin: 09/09/19 23:25 Dose: Not Given Methadone HCl 40 mg/ Methadone (HCl 30 mg) 70 mg PO DAILY@0600 [facility] Last Admin: 09/12/19 06:21 Dose: 70 mg Pantoprazole Sodium (Protonix -) 40 mg PO DAILY [facility] Last Admin: 09/11/19 10:47 Dose: 40 mg Thiamine HCl (Vitamin B1 -) 100 mg PO DAILY [facility] Last Admin: 09/11/19 10:47 Dose: 100 mg - Objective Vital Signs: Vital Signs Temperature 98.5 F 09/12/19 06:00 Pulse Rate 41 L 09/12/19 06:00 Respiratory Rate 20 09/12/19 06:00 Blood Pressure 132/78 09/12/19 06:00 O2 Sat by Pulse Oximetry (%) 98 09/11/19 19:47 Constitutional: Yes: No Distress, Calm Neck: Yes: Supple Cardiovascular: Yes: Bradycardia Respiratory: Yes: Regular, CTA Bilaterally Gastrointestinal: Yes: Soft, Hypoactive Bowel Sounds Edema: No Labs: CBC, BMP 09/12/19 07:05 09/12/19 07:05 - ....Imaging EKG: Report Reviewed (Tele: SB 40s) Problem List - Problems (1) Bradycardia Code(s): R00.1 - BRADYCARDIA, UNSPECIFIED (2) Drug use Code(s): F19.90 - OTHER PSYCHOACTIVE SUBSTANCE USE, UNSPECIFIED, UNCOMPLICATED (3) ETOH abuse Code(s): F10.10 - ALCOHOL ABUSE, UNCOMPLICATED Assessment/Plan 09/10/2019 Echo: Normal LV size and fxn, mildly dilated RV with mild decreased RV fxn, mod TR RVSP 40-50 mmHg, mild-mod MR Polysubstance abuse asymptomatic bradycardia-suspect high vagal tone prolonged QT interval since resolved Ruled out [place] Plan ETT to assess chronotropic competence F/u holter results detox
[2019-09-12] MEDS: FOLIC ACID 1 MG TABLET (FP) PO SCH (13:37)
[2019-09-12] MEDS: PANTOPRAZOLE 40 MG TABLET (FP) PO SCH (13:37)
[2019-09-12] MEDS: THIAMINE HCL 100 MG TABLET (FP) PO SCH (13:38)
--- NOTE | 2019-09-12 14:01 | TRE ---
Protocol Name : JENNIFER Max Work Load (METS*10) : 29 Time In Exercise Phase : 00:01:19 Max. Systolic BP : 164 mmHg Max Diastolic BP : 88 mmHg Max Heart Rate : 76 BPM Max Predicted Heart Rate : 159 BPM Attending Physician : DR. AYERS Reason For Termination : Fatigue Reason for Test : BRADYCARDIA Stress Protocol : JENNIFER Rest HR : 44 BPM PeakEx METs : 1.1 METS Recovery ECG Response (OLD) : Diagnosis : Indication: Assessment of Chronotropic Competence. The patient completed 1:19 seconds of a standard Jennifer Protocol achieving 2.9 METS. The resting heart rate of 42 bpm jemima to a peak of 76bpm, representing only 47% of age predicted maximum. The patient asked for exercise to stop due to fatigue. The baseline blood pressure of 149/87 jemima to a peak of 164/88. The baseline ECG showed marked sinus bradycardia at 42bpm with prolonged QTc. Nonspecific T wave changes were noted, no diagnostic ischemic ST changes and no arrhythmias. CONCLUSION: 1. Nondiagnostic submaximal exercise treadmill stress test due to failure to achieve target heart rate. 2. Poor exercise capacity. 3. Non-diagnostic study for assessment of chronotropic competence due to low workload. Clinical correlation advised. Confirmed by KIRSTEN AYERS MD ([id number]) on 09/12/2019 2:01:03 PM
--- NOTE | 2019-09-12 15:37 | PN ---
Physical Exam: SUBJECTIVE: Patient seen and examined at the bedside. OBJECTIVE: Patient is a 63 year old male with a significant past medical history of polysubstance abuse, alcohol abuse who presented to [facility] for detox from Xanax use, cocaine use and etoh use. He denies any seizures or tremors or any signs/symptoms of withdrawal. Patient has been on methadone 100mg for approximately one month and was on a lower dose of methadone a few months. He presents to [facility] for detox and was referred to [facility] for asymptomatic bradycardia and prolonged qtc of 532. Vital Signs Period Temp Pulse Resp BP Sys/Roberson Pulse Ox Last 24 Hr 98.0 F-98.5 F 41-84 20-20 115-159/68-89 98 GENERAL: The patient is awake, alert, and fully oriented, in no acute distress. HEAD: Normal with no signs of trauma. EYES: PERRL, extraocular movements intact, sclera anicteric, conjunctiva clear. No ptosis. ENT: Ears normal, nares patent, oropharynx clear without exudates, moist mucous membranes. NECK: Trachea midline, full range of motion, supple. LUNGS: Breath sounds equal, clear to auscultation bilaterally, no wheezes HEART: Regular rate and rhythm ABDOMEN: Soft, nontender, nondistended, normoactive bowel sounds, no guarding, no rebound, no hepatosplenomegaly, no masses. EXTREMITIES: no edema. NEUROLOGICAL: Normal speech, gait not observed. PSYCH: Normal mood, normal affect. SKIN: Warm, dry, normal turgor, no rashes or lesions noted Laboratory Results - last 24 hr 09/12/19 09/12/19 07:05 07:05 WBC 5.9 RBC 4.34 Hgb 13.2 Hct 39.0 MCV 89.8 MCH 30.4 MCHC 33.9 RDW 13.7 Plt Count 186 MPV 9.4 Absolute Neuts (auto) 3.2 Neutrophils % 53.5 Lymphocytes % 38.2 Monocytes % 6.0 Eosinophils % 1.7 Basophils % 0.6 Nucleated RBC % 0 Platelet Estimate Normal Sodium 140 Potassium 3.9 Chloride 106 Carbon Dioxide 31 Anion Gap 3 L BUN 21.4 H Creatinine 1.2 Est GFR (CKD-EPI)AfAm 75.19 Est GFR (CKD-EPI)NonAf 64.87 Random Glucose 91 Calcium 8.7 Magnesium 2.1 Total Bilirubin 0.5 AST 14 L ALT 17 Alkaline Phosphatase 119 H Total Protein 6.4 Albumin 3.3 L Active Medications Generic Name Dose Route Start Last Admin Trade Name Freq PRN Reason Stop Dose Admin Acetaminophen 650 mg 09/09/19 18:53 09/10/19 02:14 Tylenol - PO 650 mg Q6H PRN Administration PAIN LEVEL 7 - 10 Diazepam 5 mg 09/12/19 06:00 09/12/19 06:20 Valium - PO 09/12/19 18:01 5 mg Q12H GELY Administration Diazepam 5 mg 09/13/19 06:00 Valium - PO 09/13/19 06:01 ONCE ONE Diazepam 10 mg 09/10/19 14:46 Valium - PO 09/13/19 14:45 Q4H PRN WITHDRAWAL(CONT SUBST) Folic Acid 1 mg 09/10/19 10:00 09/12/19 13:37 Folic Acid - PO 1 mg DAILY GELY Administration Sodium Chloride 1,000 mls @ 125 mls/hr 09/09/19 19:00 09/09/19 23:25 Normal Saline - IV Not Given ASDIR GELY Methadone HCl 40 mg/ Methadone 70 mg 09/11/19 06:00 09/12/19 06:21 HCl 30 mg PO 70 mg DAILY@0600 GELY Administration Pantoprazole Sodium 40 mg 09/10/19 10:00 09/12/19 13:37 Protonix - PO 40 mg DAILY GELY Administration Thiamine HCl 100 mg 09/10/19 10:00 09/12/19 13:38 Vitamin B1 - PO 100 mg DAILY GELY Administration ASSESSMENT/PLAN: Problem List - Problems (1) Bradycardia Assessment/Plan: sinus bradycardia now in the 40s. porolonged qtc resolved. echo shows normal LV size and fxn, mildly dilated rv with mild decreased RV fxn , mod TR RVSP 40-50 mmHg, mild-mod MR stress test not completed as patient was unable to tolerate test. no signs of infection or hypothermia Code(s): R00.1 - BRADYCARDIA, UNSPECIFIED (2) ETOH abuse Assessment/Plan: patient with xanax abuse, unable to discontinue abruptly and a valium taper recommended by Dr. Aburto. given banana bag, folate thiamine for etoh abuse. no tremors. completes valium taper tomorrow. low ciwa score Code(s): F10.10 - ALCOHOL ABUSE, UNCOMPLICATED (3) Drug use Assessment/Plan: on valium taper for etoh and xanax abuse cocaine use: on methadone (reduced from 100mg to 70mg By Dr. Granados at the methadone clinic secondary to prolonged qtc) Code(s): F19.90 - OTHER PSYCHOACTIVE SUBSTANCE USE, UNSPECIFIED, UNCOMPLICATED (4) Prophylactic measure Assessment/Plan: fen tolerating po monitor electrolytes low salt diet full code dc to [facility] once cleared by cardiology Code(s): Z29.9 - ENCOUNTER FOR PROPHYLACTIC MEASURES, UNSPECIFIED Visit type - Emergency Visit Emergency Visit: Yes ED Registration Date: 09/09/19 Care time: The patient presented to the Emergency Department on the above date and was hospitalized for further evaluation of their emergent condition. - New Patient This patient is new to me today: No - Critical Care Critical Care patient: No - Discharge Referral Referred to [facility] Med P.C.: No
[2019-09-13] MEDS ORDERED: METHADONE HCL 40 MG DISPERSABLE TABLET ONE (05:39)
[2019-09-13] MEDS ORDERED: METHADONE HCL 10 MG TABLET ONE (05:40)
[2019-09-13] MEDS: METHADONE 40 MG, METHADONE 30 MG PO SCH (05:44)
[2019-09-13] MEDS ORDERED: diazePAM 5 MG TABLET PO ONE ×2 (06:00→17:09)
[2019-09-13 07:53] LABS: BASO % 0.6 % (0-2.0); EOS % 2.4 % (0-4.5); HEMATOCRIT 38.3 % (35.4-49); HEMOGLOBIN 12.9 GM/dL (11.7-16.9); LYMPH % 42.2 % (8-40); MCH 30.2 pg (25.7-33.7); MCHC 33.6 g/dl (32.0-35.9); MEAN CELL VOLUME 89.7 fl (80-96); MEAN PLT VOLUME 9.6 fl (7.5-11.1); MONO % 5.2 % (3.8-10.2); NEUT % 49.6 % (42.8-82.8); PLATELET COUNT 187 K/MM3 (134-434); RBC 4.27 M/mm3 (4.00-5.60); RDW 13.8 % (11.9-15.9); WHITE BLOOD COUNT 4.2 K/mm3 (4.0-10.0)
[2019-09-13 08:03] LABS: ALBUMIN 3.3 g/dl (3.4-5.0); BILIRUBIN,TOTAL 0.5 mg/dL (0.2-1); BLOOD UREA NITROGEN 24.7 mg/dL (7-18); CALCIUM 8.9 mg/dL (8.5-10.1); CREATININE 1.4 mg/dL (0.55-1.3); MAGNESIUM 2.1 mg/dL (1.8-2.4); POTASSIUM 4.3 mmol/L (3.5-5.1); TOT PROT 6.6 g/dl (6.4-8.2)
[2019-09-13] MEDS: PANTOPRAZOLE 40 MG TABLET (FP) PO SCH (08:59)
[2019-09-13] MEDS: FOLIC ACID 1 MG TABLET (FP) PO SCH (08:59)
[2019-09-13] MEDS: THIAMINE HCL 100 MG TABLET (FP) PO SCH (08:59)
--- NOTE | 2019-09-13 11:27 | PN ---
Physical Exam: SUBJECTIVE: Patient seen and examined at the bedside. feels well and denies any chest pain or shortness of breath. unable to tolerate the stress test yesterday. OBJECTIVE: Patient is a 63 year old male with a significant past medical history of polysubstance abuse, alcohol abuse who presented to [facility] for detox from Xanax use, cocaine use and etoh use. He denies any seizures or tremors or any signs/symptoms of withdrawal. Patient has been on methadone 100mg for approximately one month and was on a lower dose of methadone a few months. He presents to [facility] for detox and was referred to [facility] for asymptomatic bradycardia and prolonged qtc of 532. Vital Signs Period Temp Pulse Resp BP Sys/Roberson Pulse Ox Last 24 Hr 97.7 F-98.4 F 41-51 18-22 115-148/68-91 97-98 GENERAL: The patient is awake, alert, and fully oriented, in no acute distress. HEAD: Normal with no signs of trauma. EYES: PERRL, extraocular movements intact, sclera anicteric, conjunctiva clear. No ptosis. ENT: Ears normal, nares patent, oropharynx clear without exudates, moist mucous membranes. NECK: Trachea midline, full range of motion, supple. LUNGS: Breath sounds equal, clear to auscultation bilaterally, no wheezes HEART: Regular rate and rhythm ABDOMEN: Soft, nontender, nondistended, normoactive bowel sounds, no guarding, no rebound, no hepatosplenomegaly, no masses. EXTREMITIES: no edema. NEUROLOGICAL: Normal speech, gait not observed. PSYCH: Normal mood, normal affect. SKIN: Warm, dry, normal turgor, no rashes or lesions noted Laboratory Results - last 24 hr 09/13/19 09/13/19 06:55 06:55 WBC 4.2 RBC 4.27 Hgb 12.9 Hct 38.3 MCV 89.7 MCH 30.2 MCHC 33.6 RDW 13.8 Plt Count 187 MPV 9.6 Absolute Neuts (auto) 2.1 Neutrophils % 49.6 Lymphocytes % 42.2 H Monocytes % 5.2 Eosinophils % 2.4 Basophils % 0.6 Nucleated RBC % 0 Sodium 141 Potassium 4.3 Chloride 105 Carbon Dioxide 30 Anion Gap 5 L BUN 24.7 H Creatinine 1.4 H Est GFR (CKD-EPI)AfAm 62.40 Est GFR (CKD-EPI)NonAf 53.84 Random Glucose 74 Calcium 8.9 Magnesium 2.1 Total Bilirubin 0.5 AST 12 L ALT 17 Alkaline Phosphatase 114 Total Protein 6.6 Albumin 3.3 L Active Medications Generic Name Dose Route Start Last Admin Trade Name Freq PRN Reason Stop Dose Admin Acetaminophen 650 mg 09/09/19 18:53 09/10/19 02:14 Tylenol - PO 650 mg Q6H PRN Administration PAIN LEVEL 7 - 10 Diazepam 10 mg 09/10/19 14:46 Valium - PO 09/13/19 14:45 Q4H PRN WITHDRAWAL(CONT SUBST) Folic Acid 1 mg 09/10/19 10:00 09/13/19 08:59 Folic Acid - PO 1 mg DAILY GELY Administration Sodium Chloride 1,000 mls @ 125 mls/hr 09/09/19 19:00 09/09/19 23:25 Normal Saline - IV Not Given ASDIR GELY Methadone HCl 40 mg/ Methadone 70 mg 09/11/19 06:00 09/13/19 05:44 HCl 30 mg PO 70 mg DAILY@0600 GELY Administration Pantoprazole Sodium 40 mg 09/10/19 10:00 09/13/19 08:59 Protonix - PO 40 mg DAILY GELY Administration Thiamine HCl 100 mg 09/10/19 10:00 09/13/19 08:59 Vitamin B1 - PO 100 mg DAILY GELY Administration ASSESSMENT/PLAN: Problem List - Problems (1) Bradycardia Assessment/Plan: sinus bradycardia ranges between 40s-70s porolonged qtc resolved. echo shows normal LV size and fxn, mildly dilated rv with mild decreased RV fxn , mod TR RVSP 40-50 mmHg, mild-mod MR stress test not completed as patient was unable to tolerate test. holter monitor preliminary read pending. no signs of infection or hypothermia Code(s): R00.1 - BRADYCARDIA, UNSPECIFIED (2) ETOH abuse Assessment/Plan: patient with xanax abuse, and has compelted a valium taper given banana bag, folate thiamine for etoh abuse. no tremors. low ciwa score and no signs of acute etoh w/drawal. Code(s): F10.10 - ALCOHOL ABUSE, UNCOMPLICATED (3) Drug use Assessment/Plan: valium taper for etoh and xanax abuse completed cocaine use: on methadone (reduced from 100mg to 70mg By Dr[address] Granados at the methadone clinic secondary to prolonged qtc) Code(s): F19.90 - OTHER PSYCHOACTIVE SUBSTANCE USE, UNSPECIFIED, UNCOMPLICATED (4) Prophylactic measure Assessment/Plan: fen tolerating po monitor electrolytes low salt diet full code dc to [facility] once cleared by cardiology Code(s): Z29.9 - ENCOUNTER FOR PROPHYLACTIC MEASURES, UNSPECIFIED Visit type - Emergency Visit Emergency Visit: Yes ED Registration Date: 09/09/19 Care time: The patient presented to the Emergency Department on the above date and was hospitalized for further evaluation of their emergent condition. - New Patient This patient is new to me today: No - Critical Care Critical Care patient: No - Discharge Referral Referred to [facility] Med P.C.: No
--- NOTE | 2019-09-13 13:05 | PN ---
Progress Note, Physician Chief Complaint: Cardiology for Dr. Arvizu History of Present Illness: Asymptomatic SB 40s, hemodynamics stable. Patient's HR appropriately increased from 42->76, but demonstrated poor exercise capacity and ETT was submaximal. - Current Medication List Current Medications: Active Medications Acetaminophen (Tylenol -) 650 mg PO Q6H PRN PRN Reason: PAIN LEVEL 7 - 10 Last Admin: 09/10/19 02:14 Dose: 650 mg Diazepam (Valium -) 10 mg PO Q4H PRN PRN Reason: WITHDRAWAL(CONT SUBST) Stop: 09/13/19 14:45 Folic Acid (Folic Acid -) 1 mg PO DAILY [facility] Last Admin: 09/13/19 08:59 Dose: 1 mg Sodium Chloride (Normal Saline -) 1,000 mls @ 125 mls/hr IV ASDIR [facility] Last Admin: 09/09/19 23:25 Dose: Not Given Methadone HCl 40 mg/ Methadone (HCl 30 mg) 70 mg PO DAILY@0600 [facility] Last Admin: 09/13/19 05:44 Dose: 70 mg Pantoprazole Sodium (Protonix -) 40 mg PO DAILY [facility] Last Admin: 09/13/19 08:59 Dose: 40 mg Thiamine HCl (Vitamin B1 -) 100 mg PO DAILY [facility] Last Admin: 09/13/19 08:59 Dose: 100 mg - Objective Vital Signs: Vital Signs Temperature 97.8 F 09/13/19 10:00 Pulse Rate 49 L 09/13/19 10:00 Respiratory Rate 22 H 09/13/19 10:00 Blood Pressure 134/76 09/13/19 10:00 O2 Sat by Pulse Oximetry (%) 97 09/13/19 09:00 Constitutional: Yes: No Distress, Calm, Thin Neck: Yes: Supple Cardiovascular: Yes: Bradycardia Respiratory: Yes: Regular, CTA Bilaterally Gastrointestinal: Yes: Normal Bowel Sounds, Soft Edema: No Labs: CBC, BMP 09/13/19 06:55 09/13/19 06:55 - ....Imaging EKG: Report Reviewed (Tele: SB 48-52 ECG: SB @ 49 QTc 461 msec) Problem List - Problems (1) Bradycardia Code(s): R00.1 - BRADYCARDIA, UNSPECIFIED (2) Drug use Code(s): F19.90 - OTHER PSYCHOACTIVE SUBSTANCE USE, UNSPECIFIED, UNCOMPLICATED (3) ETOH abuse Code(s): F10.10 - ALCOHOL ABUSE, UNCOMPLICATED Assessment/Plan 09/10/2019 Echo: Normal LV size and fxn, mildly dilated RV with mild decreased RV fxn, mod TR RVSP 40-50 mmHg, mild-mod MR Polysubstance abuse asymptomatic bradycardia-suspect high vagal tone prolonged QT interval since resolved Ruled out [place] Plan Submaximal ETT confirms chronotropic competence amd poor exercise capacity F/u holter results detox
[2019-09-14] MEDS ORDERED: METHADONE HCL 10 MG TABLET ONE (06:21)
[2019-09-14] MEDS ORDERED: METHADONE HCL 40 MG DISPERSABLE TABLET ONE (06:21)
[2019-09-14] MEDS: METHADONE 40 MG, METHADONE 30 MG PO SCH (06:25)
[2019-09-14 06:56] LABS: BASO % 0.7 % (0-2.0); EOS % 2.2 % (0-4.5); HEMATOCRIT 40.3 % (35.4-49); HEMOGLOBIN 13.4 GM/dL (11.7-16.9); LYMPH % 45.2 % (8-40); MCH 30.2 pg (25.7-33.7); MCHC 33.4 g/dl (32.0-35.9); MEAN CELL VOLUME 90.5 fl (80-96); MEAN PLT VOLUME 9.3 fl (7.5-11.1); MONO % 6.5 % (3.8-10.2); NEUT % 45.4 % (42.8-82.8); PLATELET COUNT 190 K/MM3 (134-434); RBC 4.45 M/mm3 (4.00-5.60); RDW 14.2 % (11.9-15.9); WHITE BLOOD COUNT 4.4 K/mm3 (4.0-10.0)
[2019-09-14 07:30] LABS: ALBUMIN 3.5 g/dl (3.4-5.0); BILIRUBIN,TOTAL 0.5 mg/dL (0.2-1); BLOOD UREA NITROGEN 25.1 mg/dL (7-18); CALCIUM 9.2 mg/dL (8.5-10.1); CREATININE 1.4 mg/dL (0.55-1.3); POTASSIUM 4.2 mmol/L (3.5-5.1); TOT PROT 7.1 g/dl (6.4-8.2)
[2019-09-14] MEDS: PANTOPRAZOLE 40 MG TABLET (FP) PO SCH (09:36)
[2019-09-14] MEDS: FOLIC ACID 1 MG TABLET (FP) PO SCH (09:36)
[2019-09-14] MEDS: THIAMINE HCL 100 MG TABLET (FP) PO SCH (09:37)
--- NOTE | 2019-09-14 17:29 | PN ---
Progress Note, Physician Chief Complaint: Cardiology for Dr. Arvizu History of Present Illness: Asymptomatic SB 50-60s, hemodynamics stable. Patient's HR appropriately increased from 42->76, but demonstrated poor exercise capacity and ETT was submaximal. - Current Medication List Current Medications: Active Medications Acetaminophen (Tylenol -) 650 mg PO Q6H PRN PRN Reason: PAIN LEVEL 7 - 10 Last Admin: 09/10/19 02:14 Dose: 650 mg Folic Acid (Folic Acid -) 1 mg PO DAILY [facility] Last Admin: 09/14/19 09:36 Dose: 1 mg Sodium Chloride (Normal Saline -) 1,000 mls @ 125 mls/hr IV ASDIR [facility] Last Admin: 09/09/19 23:25 Dose: Not Given Methadone HCl 40 mg/ Methadone (HCl 30 mg) 70 mg PO DAILY@0600 [facility] Last Admin: 09/14/19 06:25 Dose: 70 mg Pantoprazole Sodium (Protonix -) 40 mg PO DAILY [facility] Last Admin: 09/14/19 09:36 Dose: 40 mg Thiamine HCl (Vitamin B1 -) 100 mg PO DAILY [facility] Last Admin: 09/14/19 09:37 Dose: 100 mg - Objective Vital Signs: Vital Signs Temperature 97.9 F 09/14/19 14:00 Pulse Rate 76 09/14/19 14:00 Respiratory Rate 20 09/14/19 14:00 Blood Pressure 110/60 09/14/19 14:00 O2 Sat by Pulse Oximetry (%) 99 09/14/19 09:00 Constitutional: Yes: No Distress, Calm Neck: Yes: Supple Cardiovascular: Yes: Bradycardia Respiratory: Yes: Regular, CTA Bilaterally Gastrointestinal: Yes: Normal Bowel Sounds, Soft Edema: No Labs: CBC, BMP 09/14/19 06:30 09/14/19 06:30 - ....Imaging EKG: Report Reviewed (Tele: SB 50-60s) Problem List - Problems (1) Bradycardia Code(s): R00.1 - BRADYCARDIA, UNSPECIFIED (2) Drug use Code(s): F19.90 - OTHER PSYCHOACTIVE SUBSTANCE USE, UNSPECIFIED, UNCOMPLICATED (3) ETOH abuse Code(s): F10.10 - ALCOHOL ABUSE, UNCOMPLICATED Assessment/Plan 09/10/2019 Echo: Normal LV size and fxn, mildly dilated RV with mild decreased RV fxn, mod TR RVSP 40-50 mmHg, mild-mod MR Polysubstance abuse asymptomatic bradycardia-suspect high vagal tone prolonged QT interval since resolved Ruled out CT Plan Submaximal ETT confirms chronotropic competence and poor exercise capacity F/u holter results detox
--- NOTE | 2019-09-14 17:38 | PN ---
Physical Exam: SUBJECTIVE: Patient seen and examined at the bedside. OBJECTIVE: Patient is a 63 year old male with a significant past medical history of polysubstance abuse, alcohol abuse who presented to [facility] for detox from Xanax use, cocaine use and etoh use. He denies any seizures or tremors or any signs/symptoms of withdrawal. Patient has been on methadone 100mg for approximately one month and was on a lower dose of methadone a few months. He presents to [facility] for detox and was referred to [facility] for asymptomatic bradycardia and prolonged qtc of 532. Vital Signs Period Temp Pulse Resp BP Sys/Roberson Pulse Ox Last 24 Hr 97.6 F-98.2 F 45-76 17-20 110-121/60-71 99-99 GENERAL: The patient is awake, alert, and fully oriented, in no acute distress. HEAD: Normal with no signs of trauma. EYES: PERRL, extraocular movements intact, sclera anicteric, conjunctiva clear. No ptosis. ENT: Ears normal, nares patent, oropharynx clear without exudates, moist mucous membranes. NECK: Trachea midline, full range of motion, supple. LUNGS: Breath sounds equal, clear to auscultation bilaterally, no wheezes HEART: Regular rate and rhythm ABDOMEN: Soft, nontender, nondistended, normoactive bowel sounds, no guarding, no rebound, no hepatosplenomegaly, no masses. EXTREMITIES: no edema. NEUROLOGICAL: Normal speech, gait not observed. PSYCH: Normal mood, normal affect. SKIN: Warm, dry, normal turgor, no rashes or lesions noted Laboratory Results - last 24 hr 09/14/19 09/14/19 06:30 06:30 WBC 4.4 RBC 4.45 Hgb 13.4 Hct 40.3 MCV 90.5 MCH 30.2 MCHC 33.4 RDW 14.2 Plt Count 190 MPV 9.3 Absolute Neuts (auto) 2.0 Neutrophils % 45.4 Lymphocytes % 45.2 H Monocytes % 6.5 Eosinophils % 2.2 Basophils % 0.7 Nucleated RBC % 0 Sodium 141 Potassium 4.2 Chloride 106 Carbon Dioxide 32 Anion Gap 3 L BUN 25.1 H Creatinine 1.4 H Est GFR (CKD-EPI)AfAm 62.40 Est GFR (CKD-EPI)NonAf 53.84 Random Glucose 78 Calcium 9.2 Magnesium 2.0 Total Bilirubin 0.5 AST 16 ALT 24 Alkaline Phosphatase 119 H Total Protein 7.1 Albumin 3.5 Active Medications Generic Name Dose Route Start Last Admin Trade Name Umer PRN Reason Stop Dose Admin Acetaminophen 650 mg 09/09/19 18:53 09/10/19 02:14 Tylenol - PO 650 mg Q6H PRN Administration PAIN LEVEL 7 - 10 Folic Acid 1 mg 09/10/19 10:00 09/14/19 09:36 Folic Acid - PO 1 mg DAILY [facility] Administration Sodium Chloride 1,000 mls @ 125 mls/hr 09/09/19 19:00 09/09/19 23:25 Normal Saline - IV Not Given ASDIR GELY Methadone HCl 40 mg/ Methadone 70 mg 09/11/19 06:00 09/14/19 06:25 HCl 30 mg PO 70 mg DAILY@0600 G[facility] Administration Pantoprazole Sodium 40 mg 09/10/19 10:00 09/14/19 09:36 Protonix - PO 40 mg DAILY [facility] Administration Thiamine HCl 100 mg 09/10/19 10:00 09/14/19 09:37 Vitamin B1 - PO 100 mg DAILY [facility] Administration ASSESSMENT/PLAN: Problem List - Problems (1) QT prolongation Assessment/Plan: resolved will order ekg today and in the a.m. Code(s): R94.31 - ABNORMAL ELECTROCARDIOGRAM [ECG] [EKG] (2) Bradycardia Assessment/Plan: sinus bradycardia ranges between 40s-70s porolonged qtc resolved, repeak ekg today ordered. echo shows normal LV size and fxn, mildly dilated rv with mild decreased RV fxn , mod TR RVSP 40-50 mmHg, mild-mod MR stress test not completed as patient was unable to tolerate test. holter monitor preliminary read pending. no signs of infection or hypothermia Code(s): R00.1 - BRADYCARDIA, UNSPECIFIED (3) ETOH abuse Assessment/Plan: patient with xanax abuse, and has compelted a valium taper given banana bag, folate thiamine for etoh abuse. no tremors. low ciwa score and no signs of acute etoh w/drawal. Code(s): F10.10 - ALCOHOL ABUSE, UNCOMPLICATED (4) Drug use Assessment/Plan: valium taper for etoh and xanax abuse completed cocaine use: on methadone (reduced from 100mg to 70mg By Dr. Granados at the methadone clinic secondary to prolonged qtc) Code(s): F19.90 - OTHER PSYCHOACTIVE SUBSTANCE USE, UNSPECIFIED, UNCOMPLICATED (5) Prophylactic measure Assessment/Plan: fen tolerating po monitor electrolytes low salt diet full code dc to [facility] once cleared by cardiology Code(s): Z29.9 - ENCOUNTER FOR PROPHYLACTIC MEASURES, UNSPECIFIED Visit type - Emergency Visit Emergency Visit: Yes ED Registration Date: 09/09/19 Care time: The patient presented to the Emergency Department on the above date and was hospitalized for further evaluation of their emergent condition. - New Patient This patient is new to me today: No - Critical Care Critical Care patient: No - Discharge Referral Referred to [facility] Med P.C.: No
[2019-09-15] MEDS ORDERED: METHADONE HCL 40 MG DISPERSABLE TABLET ONE (06:04)
[2019-09-15] MEDS ORDERED: METHADONE HCL 10 MG TABLET ONE (06:04)
[2019-09-15] MEDS: METHADONE 40 MG, METHADONE 30 MG PO SCH (06:49)
[2019-09-15 06:54] LABS: BASO % 0.5 % (0-2.0); EOS % 2.5 % (0-4.5); HEMATOCRIT 36.7 % (35.4-49); HEMOGLOBIN 12.2 GM/dL (11.7-16.9); LYMPH % 49.5 % (8-40); MCHC 33.3 g/dl (32.0-35.9); MEAN PLT VOLUME 9.6 fl (7.5-11.1); MONO % 7.9 % (3.8-10.2); NEUT % 39.6 % (42.8-82.8); PLATELET COUNT 159 K/MM3 (134-434); RBC 4.08 M/mm3 (4.00-5.60); RDW 13.8 % (11.9-15.9)
[2019-09-15 07:29] LABS: BILIRUBIN,TOTAL 0.5 mg/dL (0.2-1); BLOOD UREA NITROGEN 26.7 mg/dL (7-18); CALCIUM 8.8 mg/dL (8.5-10.1); CREATININE 1.2 mg/dL (0.55-1.3); MAGNESIUM 2.1 mg/dL (1.8-2.4); POTASSIUM 4.1 mmol/L (3.5-5.1); TOT PROT 5.8 g/dl (6.4-8.2)
[2019-09-15] MEDS: FOLIC ACID 1 MG TABLET (FP) PO SCH (09:22)
[2019-09-15] MEDS: THIAMINE HCL 100 MG TABLET (FP) PO SCH (09:23)
[2019-09-15] MEDS: PANTOPRAZOLE 40 MG TABLET (FP) PO SCH (09:23)
--- NOTE | 2019-09-15 10:24 | EKG ---
Test Reason : Blood Pressure : / mmHG Vent. Rate : 047 BPM Atrial Rate : 047 BPM P-R Int : 154 ms QRS Dur : 096 ms QT Int : 484 ms P-R-T Axes : 055 -16 -20 degrees QTc Int : 428 ms SINUS BRADYCARDIA WITH PREMATURE ATRIAL COMPLEXES T WAVE ABNORMALITY, CONSIDER ANTEROLATERAL ISCHEMIA ABNORMAL ECG WHEN COMPARED WITH ECG OF 11-SEP-2019 10:04, PREMATURE ATRIAL COMPLEXES ARE NOW PRESENT T WAVE VARIATION Confirmed by LAUREL CABELLO, ELISEO ([id number]) on 09/15/2019 10:24:27 AM Referred By: WALKER SULLIVAN Confirmed By:ELISEO BARRAGAN MD
--- NOTE | 2019-09-15 12:09 | HOL ---
Hook-up date: 2019-09-10 15:32:00 Duration: 24:00:00 Test Indications: BRADYCARDIA, PROLONGED QTC Medications: 72684 QRS complexes 1114 Ventricular ectopics which represent 1 % of total QRS comp. 154 Supraventricular ectopics which represent <1 % of total QRS comp. * Paced QRS complexs which represent % of total QRS comp. * % of Time Classified as Noise VENTRICULAR ECTOPY 1094 Isolated 848 Bigeminal Cycles 7 Couplets 1 Runs 4 Beats in Runs 4 Beats LONGEST at 148 BPM at 21:38:28 2019-09-10 4 Beats FASTEST at 148 BPM at 21:38:28 2019-09-10 SUPRAVENTRICULAR ECTOPY 144 Isolated 0 Couplets 2 Runs 9 Beats in Runs 5 Beats LONGEST at 89 BPM at 19:25:49 2019-09-10 4 Beats FASTEST at 94 BPM at 19:25:43 2019-09-10 HEART RATES 32 MIN at 23:30:24 2019-09-10 40 AVG 65 MAX at 17:17:51 2019-09-10 LONGEST RR 2.120 secs at 21:33:49 2019-09-10 SCANNED BY: KYE 09/13/19 1. BASELINE RHYTHM APPEARS TO BE SINUS RHYTHM WITH AVERAGE HR OF 40 BPM. RATES VARIED FROM 32 BPM TO 65 BPM. 2. FREQUENT VENTRICULAR ECTOPIES INCLUDING PVCS, COUPLETS AND BIGEMINY CYCLES 3, OCCASIONAL ATRIAL ECTOPIES INCLUDING APCS AND NSSVT LONGEST [address] SIGNIFICANT ST-T ABNORMALITIES 5. DIARY WAS NOT SUBMITTED Confirmed by ELISEO BARRAGAN MD ([id number]) on 09/15/2019 12:08:45 PM Referred By: Sirena SAMAYOA Overread By: ELISEO BARRAGAN MD
--- NOTE | 2019-09-15 12:33 | PN ---
Progress Note, Physician History of Present Illness: The patient is a 63 year old male, with a significant past medical history of polysubstance abuse (alcohol, crack cocaine, and Xanax), who presents to the emergency department with, bradycardia. As per [facility], patient was at their [facility] at which time he was found to be bradycardic to 49 bpm. Patient notes to be asymptomatic. He denies any recent chest pain or shortness of breath. Allergies: Penicillins. Social History: Alcohol abuse (1.5 pts vodka, 3-4 6pks of beer/day approximately 47 years), Crack cocaine (smoking approximately 20 years, Xanax ( 3-6x week, approximately 4-5 months) - Current Medication List Current Medications: Active Medications Acetaminophen (Tylenol -) 650 mg PO Q6H PRN PRN Reason: PAIN LEVEL 7 - 10 Last Admin: 09/10/19 02:14 Dose: 650 mg Folic Acid (Folic Acid -) 1 mg PO DAILY [facility] Last Admin: 09/15/19 09:22 Dose: 1 mg Sodium Chloride (Normal Saline -) 1,000 mls @ 125 mls/hr IV ASDIR [facility] Last Admin: 09/09/19 23:25 Dose: Not Given Methadone HCl 40 mg/ Methadone (HCl 30 mg) 70 mg PO DAILY@0600 [facility] Last Admin: 09/15/19 06:49 Dose: 70 mg Pantoprazole Sodium (Protonix -) 40 mg PO DAILY [facility] Last Admin: 09/15/19 09:23 Dose: 40 mg Thiamine HCl (Vitamin B1 -) 100 mg PO DAILY [facility] Last Admin: 09/15/19 09:23 Dose: 100 mg - Objective Vital Signs: Vital Signs Temperature 98 F 09/15/19 10:00 Pulse Rate 48 L 09/15/19 10:00 Respiratory Rate 20 09/15/19 10:00 Blood Pressure 148/69 09/15/19 10:00 O2 Sat by Pulse Oximetry (%) 99 09/15/19 08:03 Eyes: Yes: WNL, Conjunctiva Clear, EOM Intact HENT: Yes: WNL, Atraumatic, Normocephalic Neck: Yes: WNL, Supple, Trachea Midline Cardiovascular: Yes: WNL, Regular Rate and Rhythm Respiratory: Yes: WNL, Regular, CTA Bilaterally Gastrointestinal: Yes: WNL, Normal Bowel Sounds Genitourinary: Yes: WNL Musculoskeletal: Yes: WNL Extremities: Yes: WNL Edema: No Integumentary: Yes: WNL Neurological: Yes: WNL, Alert, Oriented ...Motor Strength: WNL Psychiatric: Yes: WNL Labs: CBC, BMP 09/15/19 05:30 09/15/19 05:30 Assessment/Plan 09/10/2019 Echo: Normal LV size and fxn, mildly dilated RV with mild decreased RV fxn, mod TR RVSP 40-50 mmHg, mild-mod MR Polysubstance abuse asymptomatic bradycardia-suspect high vagal tone prolonged QT interval since resolved Ruled out [place] Plan Submaximal ETT confirms chronotropic competence and poor exercise capacity F/u holter results detox
--- NOTE | 2019-09-15 12:55 | PN ---
Physical Exam: SUBJECTIVE: Patient seen and examined at the bedside. tells me he had some chest pressure this morning and chills. Further states he wants to go home and not back to [facility]. Wants to go to the methatdone clinic and attempt to get off methadone OBJECTIVE: chest xray shows right hilium fullness, not seen on xray 09/09/19 no wbc, no fevers spoke to choral director who advised chest ct Vital Signs Period Temp Pulse Resp BP Sys/Roberson Pulse Ox Last 24 Hr 97.6 F-98.3 F 42-76 18-20 110-149/60-80 97-99 GENERAL: The patient is awake, alert, and fully oriented, in no acute distress. HEAD: Normal with no signs of trauma. EYES: PERRL, extraocular movements intact, sclera anicteric, conjunctiva clear. No ptosis. ENT: Ears normal, nares patent, oropharynx clear without exudates, moist mucous membranes. NECK: Trachea midline, full range of motion, supple. LUNGS: Breath sounds equal, clear to auscultation bilaterally, no wheezes HEART: Regular rate and rhythm ABDOMEN: Soft, nontender, nondistended, normoactive bowel sounds, no guarding, no rebound, no hepatosplenomegaly, no masses. EXTREMITIES: no edema. NEUROLOGICAL: Normal speech, gait not observed. PSYCH: Normal mood, normal affect. SKIN: Warm, dry, normal turgor, no rashes or lesions noted Laboratory Results - last 24 hr 09/15/19 09/15/19 05:30 05:30 WBC 4.0 RBC 4.08 Hgb 12.2 Hct 36.7 MCV 90.0 MCH 30.0 MCHC 33.3 RDW 13.8 Plt Count 159 MPV 9.6 Absolute Neuts (auto) 1.6 Neutrophils % 39.6 L Lymphocytes % 49.5 H Monocytes % 7.9 Eosinophils % 2.5 Basophils % 0.5 Nucleated RBC % 0 Sodium 143 Potassium 4.1 Chloride 109 H Carbon Dioxide 28 Anion Gap 6 L BUN 26.7 H Creatinine 1.2 Est GFR (CKD-EPI)AfAm 75.19 Est GFR (CKD-EPI)NonAf 64.87 Random Glucose 76 Calcium 8.8 Magnesium 2.1 Total Bilirubin 0.5 AST 16 ALT 20 Alkaline Phosphatase 96 Total Protein 5.8 L Albumin 3.0 L Active Medications Generic Name Dose Route Start Last Admin Trade Name Umer PRN Reason Stop Dose Admin Acetaminophen 650 mg 09/09/19 18:53 09/10/19 02:14 Tylenol - PO 650 mg Q6H PRN Administration PAIN LEVEL 7 - 10 Folic Acid 1 mg 09/10/19 10:00 09/15/19 09:22 Folic Acid - PO 1 mg DAILY [facility] Administration Sodium Chloride 1,000 mls @ 125 mls/hr 09/09/19 19:00 09/09/19 23:25 Normal Saline - IV Not Given ASDIR G[facility] Methadone HCl 40 mg/ Methadone 70 mg 09/11/19 06:00 09/15/19 06:49 HCl 30 mg PO 70 mg DAILY@0600 [facility] Administration Pantoprazole Sodium 40 mg 09/10/19 10:00 09/15/19 09:23 Protonix - PO 40 mg DAILY [facility] Administration Thiamine HCl 100 mg 09/10/19 10:00 09/15/19 09:23 Vitamin B1 - PO 100 mg DAILY [facility] Administration ASSESSMENT/PLAN: Problem List - Problems (1) QT prolongation Assessment/Plan: resolved Code(s): R94.31 - ABNORMAL ELECTROCARDIOGRAM [ECG] [EKG] (2) Bradycardia Assessment/Plan: sinus bradycardia ranges between 40s-70s porolonged qtc resolved echo shows normal LV size and fxn, mildly dilated rv with mild decreased RV fxn , mod TR RVSP 40-50 mmHg, mild-mod MR stress test not completed as patient was unable to tolerate test. holter monitor preliminary read pending. Code(s): R00.1 - BRADYCARDIA, UNSPECIFIED (3) ETOH abuse Assessment/Plan: patient with xanax abuse, and has completed a valium taper given banana bag, folate thiamine for etoh abuse. no tremors. low ciwa score and no signs of acute etoh w/drawal. Code(s): F10.10 - ALCOHOL ABUSE, UNCOMPLICATED (4) Drug use Assessment/Plan: valium taper for etoh and xanax abuse completed cocaine use: on methadone (reduced from 100mg to 70mg By Dr[address] Granados at the methadone clinic secondary to prolonged qtc) Code(s): F19.90 - OTHER PSYCHOACTIVE SUBSTANCE USE, UNSPECIFIED, UNCOMPLICATED (5) Prophylactic measure Assessment/Plan: fen tolerating po monitor electrolytes low salt diet full code dc to [facility] once cleared by cardiology Code(s): Z29.9 - ENCOUNTER FOR PROPHYLACTIC MEASURES, UNSPECIFIED Visit type - Emergency Visit Emergency Visit: Yes ED Registration Date: 09/09/19 Care time: The patient presented to the Emergency Department on the above date and was hospitalized for further evaluation of their emergent condition. - New Patient This patient is new to me today: No - Critical Care Critical Care patient: No - Discharge Referral Referred to [facility] Med P.C.: No
[2019-09-15] MEDS ORDERED: MELATONIN 5 MG TABLETS PO PRN (21:20)
[2019-09-16] MEDS ORDERED: METHADONE HCL 40 MG DISPERSABLE TABLET ONE (05:54)
[2019-09-16] MEDS ORDERED: METHADONE HCL 10 MG TABLET ONE (05:55)
[2019-09-16] MEDS: METHADONE 40 MG, METHADONE 30 MG PO SCH (06:00)
[2019-09-16 07:16] LABS: BASO % 0.9 % (0-2.0); HEMATOCRIT 38.1 % (35.4-49); HEMOGLOBIN 12.7 GM/dL (11.7-16.9); LYMPH % 50.2 % (8-40); MCH 30.1 pg (25.7-33.7); MCHC 33.4 g/dl (32.0-35.9); MEAN CELL VOLUME 90.2 fl (80-96); MEAN PLT VOLUME 9.6 fl (7.5-11.1); NEUT % 37.9 % (42.8-82.8); PLATELET COUNT 161 K/MM3 (134-434); RBC 4.23 M/mm3 (4.00-5.60); RDW 14.2 % (11.9-15.9); WHITE BLOOD COUNT 3.8 K/mm3 (4.0-10.0)
[2019-09-16 07:55] LABS: ALBUMIN 3.2 g/dl (3.4-5.0); BILIRUBIN,TOTAL 0.6 mg/dL (0.2-1); BLOOD UREA NITROGEN 28.9 mg/dL (7-18); CREATININE 1.3 mg/dL (0.55-1.3); POTASSIUM 3.9 mmol/L (3.5-5.1); TOT PROT 6.4 g/dl (6.4-8.2)
[2019-09-16] MEDS: PANTOPRAZOLE 40 MG TABLET (FP) PO SCH (09:09)
[2019-09-16] MEDS: FOLIC ACID 1 MG TABLET (FP) PO SCH (09:09)
[2019-09-16] MEDS: THIAMINE HCL 100 MG TABLET (FP) PO SCH (09:09)
[2019-09-16 10:24] VITALS: BP 134/87; PULSE 48; TEMP 98.2
--- NOTE | 2019-09-16 11:45 | DS ---
Physical Exam: SUBJECTIVE: Patient seen and examined OBJECTIVE: Patient is a 63 year old male with a significant past medical history of polysubstance abuse, alcohol abuse who presented to [facility] for detox from Xanax use, cocaine use and etoh use. He denies any seizures or tremors or any signs/symptoms of withdrawal. Patient has been on methadone 100mg for approximately one month and was on a lower dose of methadone a few months. He presents to [facility] for detox and was referred to [facility] for asymptomatic bradycardia and prolonged qtc of 532. Patient has been monitored on cardiac unit during hospital stay, bradycardia improved and ranges from 40-70s on manager cardiac cath. He remained asymptomatic. QTC is no longer prolonged since decreasing the methadone from 100mg daily to methadone 70mg daily. He complained of right sided chest pressure on 09/15/2019 and a chest xray revealed a right sided hilium fullness. A chest CT showed extensive bullous emphysema with a large right upper lobe bulla, irregular right upper lobe nodule suspicious for malignancy and a PET scan was recommended (to be done as an outpatient). Findings discussed in great detail with patient and stress importance of follow up. He currently does not have a PCP and a PCP was assigned to him and an appointment made with Dr. Sands on Sunday. Patient instructed to call his insurance and ask for a brush machine setter that accepts his insurance. Patient verbalized understanding. Vital Signs Period Temp Pulse Resp BP Sys/Roberson Pulse Ox Last 24 Hr 97.6 F-98.7 F 41-51 18-22 106-139/54-87 98-99 PHYSICAL EXAM GENERAL: The patient is awake, alert, and fully oriented, in no acute distress. HEAD: Normal with no signs of trauma. EYES: PERRL, extraocular movements intact, sclera anicteric, conjunctiva clear. No ptosis. ENT: Ears normal, nares patent, oropharynx clear without exudates, moist mucous membranes. NECK: Trachea midline, full range of motion, supple. LUNGS: Breath sounds equal, clear to auscultation bilaterally, no wheezes HEART: Regular rate and rhythm ABDOMEN: Soft, nontender, nondistended, normoactive bowel sounds, no guarding, no rebound, no hepatosplenomegaly, no masses. EXTREMITIES: no edema. NEUROLOGICAL: Normal speech, gait not observed. PSYCH: Normal mood, normal affect. SKIN: Warm, dry, normal turgor, no rashes or lesions noted LABS Laboratory Results - last 24 hr 09/16/19 09/16/19 06:50 06:50 WBC 3.8 L RBC 4.23 Hgb 12.7 Hct 38.1 MCV 90.2 MCH 30.1 MCHC 33.4 RDW 14.2 Plt Count 161 MPV 9.6 Absolute Neuts (auto) 1.4 L Neutrophils % 37.9 L Lymphocytes % 50.2 H Monocytes % 8.0 Eosinophils % 3.0 Basophils % 0.9 Nucleated RBC % 0 Sodium 144 Potassium 3.9 Chloride 108 H Carbon Dioxide 31 Anion Gap 5 L BUN 28.9 H Creatinine 1.3 Est GFR (CKD-EPI)AfAm 68.25 Est GFR (CKD-EPI)NonAf 58.89 Random Glucose 78 Calcium 9.0 Magnesium 2.0 Total Bilirubin 0.6 AST 15 ALT 24 Alkaline Phosphatase 106 Total Protein 6.4 Albumin 3.2 L HOSPITAL COURSE: Date of Admission:09/09/19 Date of Discharge: 09/16/19 Minutes to complete discharge: 60 Discharge Summary Problems reviewed: Yes Reason For Visit: BRADYCARDIA Current Active Problems Bradycardia (Acute) Drug use (Acute) ETOH abuse (Acute) Prophylactic measure (Acute) QT prolongation (Acute) Condition: Fair - Instructions Diet, Activity, Other Instructions: Mr. Brar: You were admitted for low heart rate and your methadone was adjusted to a lower dose. Please speak to the methadone clinic about gradually decreasing the methadone. Also note that we found an IRREGULAR NODULE OF YOUR RIGHT LUNG on your chest imaging. You will need a PET scan for a final diagnosis. IT IS IMPORTANT THAT YOU HAVE A PET SCAN Since you do not have a primary care doctor, we have assigned one for you. Here is your appointment: Name: Dr. Senthil CABELLO Date: SundaySeptember 22 Time: 2:45pm Location: [address] [place] [address] Bring: your discharge paperwork, insurance card and picture ID DO NOT MISS THIS APPOINTMENT. You will also need to see a brush machine setter that accepts your insurance. Please call your insurance ([employer]) and obtain a list of brush machine setter in your area. Please follow up with the grocery store clerk that saw you here. thank you for allowing us to care for you. Referrals: Brant Fuller MD [Staff Physician] - Govind Zhong MD [Staff Physician] - Disposition: HOME - Home Medications Comprehensive Discharge Medication List: Ambulatory Orders Folic Acid - 1 mg PO DAILY #90 tablet 09/16/19 Thiamine HCl [Vitamin B1 -] 100 mg PO DAILY #90 tablet 09/16/19 Problem List - Problems (1) QT prolongation Assessment/Plan: resolved Code(s): R94.31 - ABNORMAL ELECTROCARDIOGRAM [ECG] [EKG] (2) Bradycardia Assessment/Plan: sinus bradycardia ranges between 40s-70s, asymptomatic porolonged qtc resolved echo shows normal LV size and fxn, mildly dilated rv with mild decreased RV fxn , mod TR RVSP 40-50 mmHg, mild-mod MR stress test not completed as patient was unable to tolerate test. holter monitor preliminary read pending. Code(s): R00.1 - BRADYCARDIA, UNSPECIFIED (3) ETOH abuse Assessment/Plan: patient with xanax abuse, and has completed a valium taper given banana bag, folate thiamine for etoh abuse. no tremors. low ciwa score and no signs of acute etoh w/drawal. Code(s): F10.10 - ALCOHOL ABUSE, UNCOMPLICATED (4) Drug use Assessment/Plan: valium taper for etoh and xanax abuse completed cocaine use: on methadone (reduced from 100mg to 70mg By Dr. Granados at the methadone clinic secondary to prolonged qtc) Code(s): F19.90 - OTHER PSYCHOACTIVE SUBSTANCE USE, UNSPECIFIED, UNCOMPLICATED (5) Lung nodule seen on imaging study Assessment/Plan: discussed lung nodule, findings and that it may be a malignancy with patient. patient verbalized understanding and agrees to a PET scan. he does not have a PCP and therefore made an appointment for him to see one next Sunday at [facility] On SundaySeptember [address]Chumachiero CABELLO. Code(s): R91.1 - SOLITARY PULMONARY NODULE (6) Prophylactic measure Assessment/Plan: discharge home Code(s): Z29.9 - ENCOUNTER FOR PROPHYLACTIC MEASURES, UNSPECIFIED This patient is new to me today: No Emergency Visit: Yes ED Registration Date: 09/09/19 Care time: The patient presented to the Emergency Department on the above date and was hospitalized for further evaluation of their emergent condition. Critical Care patient: No - Discharge Referral Referred to [facility] Med P.C.: No
--- NOTE | 2019-09-16 11:49 | PN ---
Progress Note (short form) - Note Progress Note: PULMONARY CONSULTATION DICTATED 09/16/19 IMP RUL NODULE R/O MALIGNANT PT WITH LONG H/O TOBACCO ABUSE ' MEDIASTINAL ADENOPATHY COPD EXTENSIVE BULLOUS LUNG DISEASE BRADYCARDIA SUBSTANCE ABUSE SMOKER RV SYSTOLIC DYSFUNCTION PULMONARY HYN PROLONGED QT PLAN PET SCAN PFTS INHALED BRONCHODILATORS MONITOR HR PER CARDIOLOGY SMOKING CESSATION AMBULATORY O2 SAT ON RA DR COPELAND Problem List - Problems (1) COPD (chronic obstructive pulmonary disease) Code(s): J44.9 - CHRONIC OBSTRUCTIVE PULMONARY DISEASE, UNSPECIFIED (2) Bradycardia Code(s): R00.1 - BRADYCARDIA, UNSPECIFIED (3) ETOH abuse Code(s): F10.10 - ALCOHOL ABUSE, UNCOMPLICATED (4) QT prolongation Code(s): R94.31 - ABNORMAL ELECTROCARDIOGRAM [ECG] [EKG] (5) Lung disease, bullous Code(s): J43.9 - EMPHYSEMA, UNSPECIFIED (6) Pulmonary HTN Code(s): I27.20 - PULMONARY HYPERTENSION, UNSPECIFIED (7) Lung nodule, solitary Code(s): R91.1 - SOLITARY PULMONARY NODULE
--- NOTE | 2019-09-16 13:41 | CONS ---
PULMONARY CONSULTATION DATE OF CONSULTATION: 09/16/2019 REFERRING PHYSICIAN: HISTORY OF PRESENT ILLNESS: The patient is a 63-year-old, black male with past medical history of likely COPD, long-standing history of tobacco use approximately 1/2 pack to a pack a day since age 14, polysubstance abuse, EtOH, history of crack cocaine abuse, admitted to [facility] from [facility] secondary to bradycardia. Patient was over at [facility] for detox. Apparently, about detox, he was noted to be bradycardic and a prolonged QTc; at which time, he the emergency room. On admission, he was evaluated by Cardiology. Patient was felt to have asymptomatic bradycardia. He underwent an echocardiogram which revealed [id number] regurgitation, mildly dilated right RV, and mildly reduced RV systolic function, evidence of pulmonary hypertension with right ventricular systolic pressure of 40-50 mmHg. Of note is that patient had a chest x-ray performed which revealed a prominent right hilum. He subsequently underwent a CAT scan of the chest which revealed irregular nodule right upper lobe of 2.1 x 1.1 x 1.4 cm. He was also noted to have mediastinal and hilar adenopathy and extensive bilateral bullous lung disease. The patient also complains of shortness of breath with exertion while walking on level ground at a moderate pace as well as on inclines. He denies any chest pain, palpitations. He denies any cough, hemoptysis. Denies any fevers, weight loss or night sweats. 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 PAST MEDICAL HISTORY: Again, includes substance abuse. REVIEW OF SYSTEMS: Positive mild shortness of breath with exertion. No chest pain. No palpitations. No fever. No weight loss. No hemoptysis. No abdominal pain or lower extremity edema. CURRENT MEDICATIONS: Include methadone, normal saline, melatonin, Protonix, folic acid, and vitamin B1. PHYSICAL EXAMINATION: General: The patient is a well-developed, well-nourished, male, awake, alert, in no acute distress. Vital Signs: He is afebrile, blood pressure is 134/87, heart rate is 48 and regular, respiratory rate is 22. HEENT: Exam is normocephalic, atraumatic. Neck: Supple. Heart: Regular S1 and S2. Chest: Diminished breath sounds bilaterally. No wheezes or rhonchi appreciated. Abdomen: Soft. Bowel sounds are positive. Extremities: No cyanosis or edema. LABORATORIES: WBC is 3.8, hemoglobin 12.7, hematocrit 38.1, with a platelet count of 161,000, polys 37, and 50 lymphs. Chemistry: The BUN is 28, creatinine 1.3. IMAGING: Chest CT, as noted earlier. Echo, as noted earlier. IMPRESSION: 1. Right upper lobe nodule. Rule out malignant. Patient has a long history of tobacco abuse. 2. Mediastinal adenopathy. 3. Advanced chronic obstructive pulmonary disease. 4. Extensive bullous lung disease. 5. Bradycardia, asymptomatic. 6. Substance abuse. 7. Smoker. 8. Pulmonary hypertension and right ventricular dysfunction. PLAN: Suggest PET scan as outpatient. Pulmonary function tests. Inhaled bronchodilators. Monitor heart rate. Smoking cessation counseled. Patient advised of importance of outpatient followup in regard to PET scan as well as pulmonary function tests for potential workup of underlying malignant neoplasm of the lung. YUNG COPELAND M.D. [id number]
--- NOTE | 2019-09-16 14:49 | PN ---
Progress Note, Physician History of Present Illness: The patient is a 63 year old male, with a significant past medical history of polysubstance abuse (alcohol, crack cocaine, and Xanax), who presents to the emergency department with, bradycardia. As per [facility], patient was at their [facility] at which time he was found to be bradycardic to 49 bpm. Patient notes to be asymptomatic. He denies any recent chest pain or shortness of breath. Allergies: Penicillins. Social History: Alcohol abuse (1.5 pts vodka, 3-4 6pks of beer/day approximately 47 years), Crack cocaine (smoking approximately 20 years, Xanax ( 3-6x week, approximately 4-5 months) - Objective Vital Signs: Vital Signs Temperature 98.2 F 09/16/19 10:00 Pulse Rate 48 L 09/16/19 10:00 Respiratory Rate 22 H 09/16/19 10:00 Blood Pressure 134/87 09/16/19 10:00 O2 Sat by Pulse Oximetry (%) 98 09/16/19 09:00 Eyes: Yes: WNL, Conjunctiva Clear, EOM Intact HENT: Yes: WNL, Atraumatic, Normocephalic Neck: Yes: WNL, Supple, Trachea Midline Cardiovascular: Yes: WNL, Regular Rate and Rhythm Respiratory: Yes: WNL, Regular, CTA Bilaterally Gastrointestinal: Yes: WNL, Normal Bowel Sounds Genitourinary: Yes: WNL Musculoskeletal: Yes: WNL Extremities: Yes: WNL Edema: No Integumentary: Yes: WNL Neurological: Yes: WNL, Alert, Oriented ...Motor Strength: WNL Psychiatric: Yes: WNL Labs: CBC, BMP 09/16/19 06:50 09/16/19 06:50 Assessment/Plan 09/10/2019 Echo: Normal LV size and fxn, mildly dilated RV with mild decreased RV fxn, mod TR RVSP 40-50 mmHg, mild-mod MR Polysubstance abuse asymptomatic bradycardia-suspect high vagal tone prolonged QT interval since resolved Ruled out GA Plan Submaximal ETT confirms chronotropic competence and poor exercise capacity F/u holter results detox
== END 2019-09-16 14:00 | disposition home or self-care (01) | DRG 201 ==
LOC: JER 12:40 → JERBED 15:43 → J4W 09-10 12:44
PROVIDERS: ADMIT Internal Medicine; ATTEND Nurse Practitioner Family
DX: R00.1 Bradycardia, unspecified (principal); J44.9 Chronic obstructive pulmonary disease, unspecified; F11.90 Opioid use, unspecified, uncomplicated; F10.10 Alcohol abuse, uncomplicated; I27.20 Pulmonary hypertension, unspecified; F19.90 Other psychoactive substance use, unspecified, uncomplicated; F14.90 Cocaine use, unspecified, uncomplicated; R59.0 Localized enlarged lymph nodes; F17.210 Nicotine dependence, cigarettes, uncomplicated; R91.1 Solitary pulmonary nodule; R94.31 Abnormal electrocardiogram [ECG] [EKG]
CPT/HCPCS: 36415; 71045-TC-FY; 71250-TC; 80048; 80053; 80061; 83721; 83735; 84436; 84443; 84484; 85025; 85027; 93005; 93010; 93017; 93018; 93225; 93226; 93306-TC; 99285-25; J7030